=== PATIENT | female | born 1945 | race Caucasian/White ===

== ENCOUNTER → 2016-11-24 | Outpatient (CLI) | payer OTHER, MEDICARE ==
--- NOTE | 2016-11-25 13:03 | MAMMOGRAPHY REPORT ---
BILATERAL DIGITAL SCREENING MAMMOGRAM WITH CAD: 11/24/2016 CLINICAL HISTORY: Routine screening. Patient has no complaints. TECHNIQUE: Current study was also evaluated with a Computer Aided Detection (CAD) system. COMPARISON: Comparison is made to exams dated: 11/21/2015 mammogram, 11/20/2014 mammogram, 11/16/2013 mammogram, 11/08/2012 mammogram, 11/05/2011 mammogram, and 11/04/2010 mammogram - [facility] enter. BREAST COMPOSITION: The tissue of both breasts is heterogeneously dense, which may obscure small ma sses. FINDINGS: The parenchymal pattern is unchanged. No developing mass, architectural distortion or clu ster of suspicious microcalcifications is seen in either breast. IMPRESSION: ACR BI-RADS CATEGORY 2: BENIGN There is no mammographic evidence of malignancy. A 1 year screening mammogram is recommended. The p atient will receive written notification of the results. Approximately 10% of breast cancers are not detected with mammography. A negative mammographic repor t should not delay biopsy if a clinically suggestive mass is present. Sonali Merritt M.D. ay/:11/24/2016 15:23:39 Shredded Filler Cutter Operator: Archana Giraldo RT(R)(M)(BD), [facility] letter sent: Normal 1/2 BI-RADS Code: ACR BI-RADS Category 2: Benign
== END | disposition home or self-care (01) ==
LOC: C.MAMM 10:53
PROVIDERS: ATTEND Family Medicine
DX: Z12.31 Encounter for screening mammogram for malignant neoplasm of breast (principal)

== ENCOUNTER → 2017-11-16 | Outpatient (CLI) | payer OTHER, MEDICARE ==
--- NOTE | 2017-11-17 06:31 | PAP/PSG TECHNICIAN REPORT ---
[facility] Newspaper Copy Editor Polysomnogram Report Study name: None Report date: 11/17/2017 Study date: 11/16/2017 Referring Physician: Dr. Horne Name: STERLING PARK Interpreting Physician: Pratik Lora M.D. Date of : 1945 Newspaper Copy Editor: Dali Walter RPS. Sex: Female Age: 72 Study Type: PSG Weight: 174 lbs 15.5 in Height: 72 years, Height 5' 3.5" Neck Circum: BMI: 30.34 Medications: ATORVASTATIN 20 MG, LISINOPRIL 5 MG, GLUCOSAMINE CHONDROITIN, ASPIRIN 81 MG, VIT D3 2000 UNIT, FISH OIL 1000 MG, AREDS 2, CALCIUM+D 500-200 MG, COQ10 100 MG, MULTI VIT Patient History 72 yr-old female here for a baseline study. She has a history of frequent awakenings and daytime sleepiness. 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 Her [place] scale is 7. The test was started on room air. ETCO2 testing is included in this study. Room 3 Parameters Monitored NPSG: E1-M2, E2-M1, Fp1-M2, Fp2-M1, F3-M2, F4-M2, F4-M1, C3-M2, C4-M2, C4-M1, O1-M2, O2-M2, O2-M1, T3-M2, T4-M1, P3-M2, P4-M1, CHIN1, CHIN2, HR, EKG, Legs, PFLOW, SNOR, FLOW, CFLOW, Tidal Volume, THOR, ABDO, SpO2, PLTH, CPRESS, ETCO2 Wave, ETCO2, pH Sleep Architecture Sleep Stages Time at Lights Off 11:03:00 PM STAGES Time (min.) TST (%) Time at Lights On 5:33:30 AM Wake 154.5 -- Total Recording Time (TRT) 390.50 min. N1 20.0 8 Total Sleep Period (TSP) 284.0 min. N2 139.5 59 Total Sleep Time (TST) 236.0min. N3 29.0 12 Awake Time 154.5 min. REM 47.5 20 Wake after Sleep Onset 53.0 min. Sleep Efficiency (SE) 60 % Sleep Onset Latency (MICHAEL) 101.5 min. Number of Stage 1 Shifts None Awakenings 26 Stage Changes 91 Number of REM periods 3 REM 47.5 20 REM Latency 72.0 min. NREM 188.5 80 Body Position Analysis Supine Right Left Side Prone Vertical Total Sleep Time (min.) 30.7 126.9 94.5 221.37 0.0 0.0 Total Sleep Time (%) 6% 54% 40% 94 0% N/A% Total Sleep Time REM (min.) 0.0 11.5 36.0 None 0.0 0.0 Total Sleep Time NREM (min.) 14.6 115.4 58.5 None 0.0 0.0 Intermittent Wake (min.) 16.0 65.9 72.5 None 0.0 0.0 Total Sleep Period (%) 11% None None None None None Arousals Myoclonus (PLM) * Events Count Index Events Count Index Spontaneous 28 7 Events Awake (PLMW) 123 47.8 Respiratory 17 4.3 Events Asleep w/ Arousal (PLMA) 40 10.2 PLM 39 10 Events Asleep w/o Arousal (PLMS) 65 16.5 Snoring 11 3 Total Asleep 105 26.7 Total 95 24 Total 228 35 Respiratory Analysis * CA OA MA CH H RERA Total Count 0 23 0 0 38 6 61 Index 0.0 5.8 0.0 0 9.7 2 17.0 Mean Duration 0.0 17.3 0.0 0.00 24.2 18.8 21.4 Longest Duration 0.0 29.2 0.0 0.00 0.0 22.5 43.1 Respiratory Event Summary Total Supine ~Supine Right Left Prone REM NREM Apneas Count 23 0 23 21 2 N/A 16 7 Index 5.8 0 6 9.9 1.3 N/A 20 2 Hypopneas (4% Desat) Count 38 2 36 8 28 N/A 28 10 Index 9.7 8.2 10 3.8 17.8 N/A 35.4 3.2 Apneas & All Hypopneas Count 61 2 59 29 30 N/A 44 17 Index 15.5 8 16 14 19 N/A 55.6 5.4 Respiratory Events (Child Psychiatrist+All Hyp+RERA) Count 61 5 62 30 32 N/A 44 17 Index 17.0 21 17 14.2 20.3 N/A 55.6 7.3 Respiratory Related Arousal Count 17 5 13 7 6 N/A 7 10 Index 4.3 16 4 3 4 N/A 9 3 Snoring Analysis Supine Right Left Prone REM NREM Total Snore duration 38.0 min Snores count 34 1,223 461 N/A 267 1,451 1,718 Snore mean duration 1.3 Sec Snores index 139 578 293 N/A 337.3 461.9 436.8 TST with snoring (%) 16.1% SpO2 Analysis Total REM NREM Awake <50% 0.1 min. 0.0 min. 0.0 min. 0.1 min. 51 - 60% 0.0 min. 0.0 min. 0.0 min. 0.0 min. 61 - 70% 0.0 min. 0.0 min. 0.0 min. 0.0 min. 71 - 80% 0.1 min. 0.1 min. 0.0 min. 0.0 min. 81 - 90% 21.6 min. 7.6 min. 12.3 min. 1.8 min. 91 - 100% 356.2 min. 39.8 min. 176.2 min. 140.2 min. Average 93 93 93 94 Minimum SpO2 44 80 82 44 Desaturation Event Index 10.9 51.8 6.4 4.3 # Desat. Events below 89% 29 23 5 1 Time(%) with Saturation below 89% 1.6 1.1 0.3 0.1 Time(min.) with Saturation below 89% 6.0 4.3 1.1 0.6 Heart Rate Analysis End Tidal CO2 Analysis Min (bpm) Max (bpm) Average (bpm) TSP (mins) % of TSP Awake 51 81 63 Above 55 mmHg 0.0 0.0 NREM 50 80 60 50-55 mmHg 0.0 0.0 REM 54 79 63 45-50 mmHg 0.0 0.0 Overall 50 80 61 40-45 mmHg 66.6 28.2 35-40 mmHg 67.8 28.7 30-35 mmHg 43.5 18.4 Average ETCO2 0.1 Supplemental O2 Values Minimum O2 level: None Value Start Time End Time Newspaper Copy Editor Comments Ms. Park slept in the right, left, and supine positions. No cardiac arrhythmias were noted. PLMs and leg movements that caused arousals were noted. No bruxism noted. Snoring was noted and scored as a 2 on a scale of 1 through 5. (0=no snoring, 5=snoring loud enough to be heard through a closed door or down the [address] way). She awoke to use the restroom one time during the night. Ms. Park stated that she did not sleep as well as usual. The final report will be interpreted and signed by a sleep physician. The completed physician report will then be placed in the patient medical record. Therapy (cm H2O) 0 TIB (min.) 390.5 TST (min.) 236.0 Sleep Onset (min.) 101.5 REM Onset From Sleep (min.) 72.0 Sleep Efficiency % 60 Wakefulness (%) 40 Wakefulness (min.) 154.5 NREM 1 (%) 8 NREM 1 (min.) 20.0 NREM 2 (%) 59 NREM 2 (min.) 139.5 NREM 3 (%) 12 NREM 3 (min.) 29.0 REM (%) 20 REM (min.) 47.5 # Arousals 95 Arousal Index 24 # Snore 1,718 Snore Index 436.8 AHI 15.5 AHI Supine 8 AHI Non-Supine 16 NREM AHI 5.4 REM AHI 55.6 RDI 17.0 # Obstructive Apnea 23 # Central Apnea 0 # Mixed Apnea 0 # Hypopneas 38 RERAs 6 Total Respiratory Events 67 Time Below SpO2 89% (min.) 5.4 Mean NREM SpO2 (%) 93 Mean REM SpO2 (%) 93 Mean Sleep SpO2 (%) 93 Min NREM SpO2 (%) 82 Min REM SpO2 (%) 80 Position Supine (min.) 30.7 Position Non-supine (min.) 221.4 LM Index Sleep 26.7 LM Index NREM 32.5 LM Index REM 3.8 Mean Heart Rate (bpm) 61 Min Heart Rate (bpm) 50
--- NOTE | 2017-11-17 16:29 | POLYSOMNOGRAPH REPORT ---
CLINICAL DATA: A 72-year-old female referred by Dr. Horne for a sleep study. She has a BMI of 30.34. She has frequent awakenings and daytime sleepiness. She had a sleep study done by a dentist which showed CINTIA. SLEEP ARCHITECTURE: Total sleep period was 284 minutes. Total sleep time was 236 minutes divided between 188.5 minutes of non-REM sleep and 47.5 minutes of REM sleep. Sleep onset latency was delayed at 101.5 minutes. REM latency was 72 minutes. Sleep efficiency was 60%. Wake after sleep onset was 53 minutes. Sleep consisted of stage N1 8%, stage N2 59%, stage N3 12%, and REM 20%. AROUSAL DATA: Ninety five arousals were recorded for an index of 24 per hour. PERIODIC LIMB MOVEMENT DATA: Sieper and five limb movements during sleep were noted for an index of 26.7 per hour with arousal index of 10.2 per hour. RESPIRATORY DATA: Moderate sleep apnea was documented. The AHI was 15.5. The RDI was 17. There were 23 obstructive apneic episodes. The longest duration of apnea was 29.2 seconds. There were 38 hypopneic episodes with the mean duration of 24 seconds. There were 6 RERAs. The longest RERA was 23.5 seconds. OXIMETRY DATA: Nocturnal hypoxemia was seen. Oxygen fernanda was 80% during REM. The mean saturation was 93%. Time below 89% was 6 minutes. ECHOCARDIOGRAM: Heart rates ranged from 50 to 80 beats per minute. No arrhythmias were noted. DOUBLE END CHUCKING MACHINE OPERATOR'S COMMENTS: The patient slept in the right, left, and supine positions. PLMs caused arousal. Snoring was mild, rated 2 on a scale of 1-5. IMPRESSION: Moderate sleep apnea/hypopnea with an apnea/hypopnea index of 15.5 and a respiratory disturbance index of 17 with frequent limb movements during sleep. RECOMMENDATIONS: The patient may benefit from a repeat sleep study with CPAP, use of auto CPAP, or use of an oral appliance. DARIEN
== END | disposition home or self-care (01) ==
LOC: C.NEUR 21:00
PROVIDERS: ATTEND Internal Medicine
DX: G47.33 Obstructive sleep apnea (adult) (pediatric) (principal)

== ENCOUNTER → 2017-11-26 | Outpatient (CLI) | payer OTHER, MEDICARE ==
--- NOTE | 2017-11-27 14:43 | MAMMOGRAPHY REPORT ---
BILATERAL DIGITAL SCREENING MAMMOGRAM TOMOSYNTHESIS WITH CAD: 11/26/2017 CLINICAL HISTORY: Routine screening. Patient has no complaints. TECHNIQUE: Breast tomosynthesis in addition to standard 2D mammography was performed. Current study was also evaluated with a Computer Aided Detection (CAD) system. COMPARISON: Comparison is made to exams dated: 11/24/2016 mammogram, 11/21/2015 mammogram, 11/20/2014 m ammogram, 11/16/2013 mammogram, 11/08/2012 mammogram, and 11/05/2011 mammogram - [facility]. BREAST COMPOSITION: The tissue of both breasts is heterogeneously dense, which may obscure small mas ses. FINDINGS: The glandular pattern is similar to prior mammograms. A nodular asymmetry in the anterior slightly and her left breast on the MLO view appears stable dating back to at least 10/26/2008, there fore likely benign. No suspicious mass, architectural distortion or cluster of microcalcifications i s seen. IMPRESSION: ACR BI-RADS CATEGORY 1: NEGATIVE There is no mammographic evidence of malignancy. A 1 year screening mammogram is recommended. The pa tient will receive written notification of the results. Approximately 10% of breast cancers are not detected with mammography. A negative mammographic report should not delay biopsy if a clinically suggestive mass is present. Sonali Merritt M.D. ay/:11/26/2017 19:41:02 Director Of Publications: Damaris URIBE)(Nela), [facility] letter sent: Normal 1/2 BI-RADS Code: ACR BI-RADS Category 1: Negative
== END | disposition home or self-care (01) ==
LOC: C.MAMM 11:04
PROVIDERS: ATTEND Family Medicine
DX: Z12.31 Encounter for screening mammogram for malignant neoplasm of breast (principal)

== ENCOUNTER 2025-09-23 11:57 | Inpatient (IN) ==
[2025-09-23 12:32] LABS: Hematocrit (blood only) 39.5 % (37.0-47.0); Hemoglobin 13.0 g/dL (12.0-16.0); Immature Granulocytes # (auto) 0.10 K/uL (0.01-0.20); Immature Granulocytes % (auto) 0.7 %; Mean Corpuscular Hemoglobin 28.2 pg (25.0-34.0); Mean Corpuscular Volume 85.7 fL (80.0-100.0); Platelet Count 280 K/uL (130-400); RDW Standard Deviation 48.8 fL (36.4-46.3); Red Blood Count 4.61 M/uL (4.20-5.40); White Blood Count 14.41 K/ul (4.8-10.8)
[2025-09-23 13:09] LABS: INR 1.1 (0.9-1.1); Prothrombin Time 11.1 Seconds (9.0-12.0)
[2025-09-23 13:15] LABS: Alanine Aminotransferase 25.0 U/L (7-52); Albumin Globulin Ratio 0.9 (0.9-2); Albumin Level 3.8 gm/dl (3.4-5.0); Alkaline Phosphatase 76.0 U/L (34-104); Anion Gap 7.0 (3-11); Bilirubin,Total 2.1 mg/dl (0.2-1.0); Blood Urea Nitrogen 17.0 mg/dl (6-23); Calcium 9.9 mg/dl (8.6-10.3); Carbon Dioxide 29.0 mmol/L (21-32); Chloride 98.0 mmol/L (98-107); Creatinine Clr Calc Pharmacy 64.3 ml/min; Globulin 4.1 gm/dl (2.5-4.0); Glucose 111.0 mg/dl (70-99(Fasting)); Lipase 30.0 U/L (11-82); Magnesium 2.0 mg/dl (1.7-2.4); Potassium 3.9 mmol/L (3.5-5.1); Sodium 134.0 mmol/L (136-145); Total Protein 7.9 gm/dl (6.0-8.3)
[2025-09-23 13:30] LABS: Thyroid Stimulating Hormone 1.451 uIu/ml (0.300-4.500)
--- NOTE | 2025-09-23 14:25 | XRay Report ---
Clinical History: Weakness Technique: A frontal view of the chest was obtained Findings: There are no confluent pulmonary infiltrates. The heart size is within normal limits. No pleural effusion or pneumothorax is seen. There is no definite pulmonary nodule. No fracture is noted. 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
--- NOTE | 2025-09-23 14:33 | Emergency Department Note ---
History of Present Illness General Chief complaint: Weakness Stated complaint: WEAKNESS Time Seen by Provider: 09/23/25 12:28 History of Present Illness this 80-year-old female presents today by BLS ambulance, for evaluation of weakness after sliding to the floor. The patient states she was getting up off the couch and stepped on a towel that was on the floor. It caused her foot to slide out from underneath her and she slid to the floor onto her left side. She states she has osteoarthritis and known baseline weakness. She was unable to get herself up off the floor. She called for EMS assistance. Due to her weakness, she was brought to the ED for evaluation. She denies any acute injury at this time. She did not strike her head. She denies any loss of consciousness, nausea, vomiting, abdominal pain, chest pain, or increased extremity pain. She has baseline bilateral knee pain secondary to osteoarthritis. She states she also has loss of function of the right hand secondary to pain and swelling for the last 3 weeks. She states that it is significantly swollen, however it is better than it was on Thursday. Her PCP is aware of this and has scheduled an MRI for October 02. 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 She states she feels normal other than the weakness. She has not been using her usual meloxicam while using the prednisone. Female friend accompanies her today and also provides pertinent history. the friend states that a month ago, the patient was able to walk unassisted from her apartment, through the parking lot of a shopping center, and to her physician's office. She has declined to the point where she now requires a walker to get around her home. Home Medications Medication Instructions Recorded Confirmed Type aspirin 81 mg tablet,delayed 81 mg PO QAM 03/01/19 09/23/25 History release atorvastatin 20 mg tablet 20 mg PO PM 03/01/19 09/23/25 History calcium 500 mg (as 1 tab PO BID 03/01/19 09/23/25 History carbonate)-vitamin D3 5 mcg (200 unit) tablet (Calcium 500 + D) cholecalciferol (vitamin D3) 25 1,000 unit PO DAILY 03/01/19 09/23/25 History mcg (1,000 unit) capsule (Vitamin D3) coenzyme Q10 100 mg capsule 0 cap PO DAILY ##0 03/01/19 09/23/25 History glucosamine-chondroitin 500 mg-400 1 tab PO DAILY 03/01/19 09/23/25 History mg tablet (Cosamin DS) multivitamin 1 tab PO DAILY 03/01/19 09/23/25 History omega 4-wxq-qjt-fish oil 1,000 mg 1 cap PO DAILY 03/01/19 09/23/25 History (120 mg-180 mg) capsule (Fish Oil) vit C 250 mg-vit E 90 mg-zinc 40 1 tab PO DAILY 03/01/19 09/23/25 History mg-copper 1 [id number] capsule (PreserVision AREDS-2) benzonatate 100 mg capsule 100 mg PO BID PRN cough #30 caps 01/22/25 09/23/25 Rx lisinopril 5 mg tablet 2.5 mg PO PM 01/22/25 09/23/25 History meloxicam 15 mg tablet 15 mg PO DAILY PRN Pain 09/23/25 09/23/25 History Allergies Allergy/AdvReac Type Severity Reaction Status Date / Time latex Allergy Rash Verified 03/10/25 15:35 No Known Drug Allergies Allergy Verified 03/10/25 15:35 Penicillins Allergy Verified 03/10/25 15:35 Past Med/Surg History Problem List Osteoarthritis (Acute) Weakness (Acute) Pain and swelling of right wrist (Acute) Chondrocalcinosis Arthritis of knee, left Medical History Obesity (BMI 30.0-34.9) Plantar fasciitis of right foot Osteoarthritis History of anxiety Hypertension Hyperlipidemia Sleep apnea CPAP Surgical History History of cataract surgery History of tooth extraction History of tonsillectomy History of total abdominal hysterectomy and bilateral salpingo-oophorectomy History of colonoscopy W/ POLYPECTOMY Family History Brother Family history of diabetes mellitus Father Family history of diabetes mellitus Father Family hx of colon cancer Social History Smoking Status: Never smoker Second Hand Exposure: No; Do You Dip or Chew Tobacco: No; Hx Alcohol Use: No Hx Substance Use: No Preferred Language: Turkmen Communication Ability: Effective [employer] Tester Required: No Beliefs That Will Affect Care: None Current Living Situation: Alone Other Information That Helps Us Care for You: No Feels Safe at Home: Yes Assistive Devices: Glasses, Hearing Aid - Bilateral and Walker Assistive Devices Comment: hearing aids not available Review of Systems A total of 10 systems reviewed and were otherwise negative Physical Exam Vital Signs Vital Signs - 24 hr 09/23/25 13:00 09/23/25 14:00 09/23/25 15:00 Pulse Rate 73 77 76 Pulse Rate from SpO2 Sensor 73 76 79 Respiratory Rate 17 12 17 Blood Pressure 150/80 H 146/67 H 132/70 Blood Pressure Mean 103 93 107 Pulse Oximetry 99 99 95 General: Well-developed, well-nourished, elderly white female, in no acute distress. Laying in bed. Alert and oriented. Conversive. Skin: Warm and dry with good turgor. No rashes. No ecchymosis or erythema. No significant peripheral edema. She has a small healing cut on the very tip of her right thumb with a scab present. There is no erythema or edema in the hand. HEENT: Normocephalic atraumatic. Eyes PERRLA, EOMI. No conjunctiva or scleral injection. Ears TMs intact bilaterally with good light reflexes. No erythema or bulging. No hemotympanum. Canals are patent. Nares patent bilaterally without turbinate enlargement. No significant drainage. No epistaxis. Oropharynx without erythema or exudate. Uvula midline, oral mucosa moist. No lesions present. Heart: Heart RRR. No MGR. Peripheral pulses are 2+. Lungs: Lungs are clear to auscultation. No crackles rhonchi or wheezing. Good air movement. The patient is able to take a deep breath. Abdomen: Abdomen was inspected, auscultated, and palpated. Bowel sounds present x 4. Soft, nontender to palpation. No hepato-splenomegaly. No masses noted. No rebound. Musculoskeletal: The patient has no obvious deformity. She has intact motor function to her right hand digits. FDS and FDP functions are intact though she is unwilling to fully make a fist. Thumb circumduction is intact. She has full extension of each of the digits. There is intact wrist motion but she is unwilling to fully flex or extend. She has full range of motion of her right elbow and shoulder. When asked to sit up, she initially required significant assistance, however later in the visit she was able to sit up on her own. She has no discomfort with rotation of her hips. She complains of severe pain in both of her knees. She has full extension of both knees. Flexion to only 45 degrees with significant resistance from the patient. No appreciable effusion in either knee. Intact plantarflexion dorsiflexion of her ankles. Neurologic: Gross sensation is intact across the upper and lower extremities by soft touch. She has hyper sensitivity to the right thumb. Course Administered Medications Aspirin (Aspirin 81 Mg Ectab) 81 mg PO QAM MANJIT Stop: 10/24/25 08:59 Last Admin: 09/24/25 08:26 Dose: 81 mg Documented By: ANT Atorvastatin Calcium (Atorvastatin 20 Mg Tab) 20 mg PO PM MANJIT Stop: 10/23/25 20:59 Last Admin: 09/23/25 20:02 Dose: 20 mg Documented By: JIAN Calcium/Vitamin D (Calcium 600mg + Vit D 400 Iu Tab) 1 tab PO BID MANJIT Stop: 10/23/25 20:59 Last Admin: 09/24/25 08:26 Dose: 1 tab Documented By: Admin: 09/23/25 20:02 Dose: 1 tab Documented By: JIAN Dexamethasone (Dexamethasone 4 Mg Tab) 4 mg PO DAILY MANJIT Stop: 10/24/25 08:59 Last Admin: 09/24/25 08:26 Dose: 4 mg Documented By: ANT Ketorolac Tromethamine (Ketorolac Tromethamine 10 Mg Tablet) 10 mg PO TID MANJIT Stop: 09/28/25 20:59 Last Admin: 09/24/25 13:35 Dose: 10 mg Documented By: Admin: 09/24/25 08:25 Dose: 10 mg Documented By: Admin: 09/23/25 20:01 Dose: 10 mg Documented By: JIAN Lisinopril (Lisinopril 2.5 Mg Tab) 2.5 mg PO PM MANJIT Stop: 10/23/25 20:59 Last Admin: 09/23/25 20:02 Dose: 2.5 mg Documented By: JIAN Multivitamins (Multivitamin Tab) 1 tab PO DAILY MANJIT Stop: 10/24/25 08:59 Last Admin: 09/24/25 08:26 Dose: 1 tab Documented By: ANT Vitamin D (Cholecalciferol 25 Mcg (1000 Units) Tab) 25 mcg PO DAILY MANJIT Stop: 10/24/25 08:59 Last Admin: 09/24/25 08:26 Dose: 25 mcg Documented By: [facility] Discontinued Medications Dexamethasone (Dexamethasone 4 Mg Tab) 4 mg PO ONE ONE Stop: 09/23/25 16:31 Last Admin: 09/23/25 18:22 Dose: 4 mg Documented By: CS Medical Decision Making Differential Diagnosis PMR, Lyme disease, sepsis, myositis, osteoarthritis, rheumatoid arthritis, ankylosis, Gout Medical Records Attestation: I reviewed the patient's medical records. Home Medications Current Medication List: was personally reviewed by me Laboratory Data CBC obtained today shows an elevation of white count at 14.4. Normal H&H. Normal platelets. Differential shows an elevated neutrophil count. Chemistry panel obtained today shows normal electrolytes. Normal BUN and creatinine. Glucose is 111. LFTs are unremarkable. Magnesium is normal at 2.0. She has a significant elevated CRP and sed rate at 20 and 103. Uric acid is normal at 4.2. Troponin is normal at 10. TSH is also normal at 1.4. 09/24/25 09:28 09/24/25 09:28 Lab Results 09/23/25 Range/Units 12:06 WBC 14.41 H (4.8-10.8) K/ul RBC 4.61 (4.20-5.40) M/uL Hgb 13.0 (12.0-16.0) g/dL Hct 39.5 (37.0-47.0) % MCV 85.7 (80.0-100.0) fL MCH 28.2 (25.0-34.0) pg MCHC 32.9 (32.0-36.0) g/dL RDW Std Deviation 48.8 H (36.4-46.3) fL RDW Coeff of Kannan 15.8 H (11.5-14.5) % Plt Count 280 (130-400) K/uL MPV 9.6 (9.4-12.4) fL Immature Gran % (Auto) 0.7 % Neut % (Auto) 82.7 % Lymph % (Auto) 7.3 % Canyon % (Auto) 9.0 % Eos % (Auto) 0.2 % Baso % (Auto) 0.1 % Reticulocyte % (Auto) 1.09 (0.50-2.00) % Neut # (Auto) 11.92 H (1.40-6.50) K/uL Lymph # (Auto) 1.05 L (1.20-3.40) K/uL Canyon # (Auto) 1.29 H (0.11-0.59) K/uL Eos # (Auto) 0.03 (0.00-0.50) K/uL Baso # (Auto) 0.02 (0.00-0.20) K/uL Reticulocyte # 0.050 (0.020-0.100) 10^6/uL Immature Gran # (Auto) 0.10 (0.01-0.20) K/uL ESR 103 H (0-30) mm/hr PT 11.1 (9.0-12.0) Seconds INR 1.1 (0.9-1.1) Sodium 134 L (136-145) mmol/L Potassium 3.9 (3.5-5.1) mmol/L Chloride 98 (98-107) mmol/L Carbon Dioxide 29 (21-32) mmol/L Anion Gap 7 (3-11) BUN 17 (6-23) mg/dl Creatinine 0.71 (0.6-1.2) mg/dl Est Cr Clr Drug Dosing 64.3 ml/min eGFR 86.98 BUN/Creatinine Ratio 23.9 H (10-20) Glucose 111 H (70-99(Fasting)) mg/dl Uric Acid 4.2 (2.6-7.2) mg/dl Calcium 9.9 (8.6-10.3) mg/dl Phosphorus 2.8 (2.5-4.9) mg/dl Magnesium 2.0 (1.7-2.4) mg/dl Total Bilirubin 2.1 H (0.2-1.0) mg/dl Direct Bilirubin 0.3 H (0-0.2) mg/dl AST 25 (13-39) U/L ALT 25 (7-52) U/L Alkaline Phosphatase 76 (34-104) U/L Lactate Dehydrogenase 199 (86-244) U/L Total Creatine Kinase 88 (26-192) U/L Troponin I High Sens 10.0 (0-14) pg/ml C-Reactive Protein 20.38 H (0-0.5) mg/dl Total Protein 7.9 (6.0-8.3) gm/dl Albumin 3.8 (3.4-5.0) gm/dl Globulin 4.1 H (2.5-4.0) gm/dl Albumin/Globulin Ratio 0.9 (0.9-2) Lipase 30 (11-82) U/L TSH 1.451 (0.300-4.500) uIu/ml Imaging Data My Impression: Chest x-ray obtained today is is interpreted by me and read by radiology. Films are unremarkable. No infiltrates. No effusion or pneumothorax. Radiologist's Impression: Chest X-Ray 09/23/25 12:09 Clinical History: Weakness Technique: A frontal view of the chest was obtained Findings: There are no confluent pulmonary infiltrates. The heart size is within normal limits. No pleural effusion or pneumothorax is seen. There is no definite pulmonary nodule. No fracture is noted. 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 No acute ST or T wave changes. This was reviewed with Dr. Packer. Blood Pressure Blood Pressure Findings: Normal blood pressure MDM Narrative the patient was evaluated in room B10. Conservative care measures were discussed. IV was established. Labs were obtained. Her inflammatory markers are considerably elevated. White count is mildly elevated. This may be due to her recent steroid use. I obtained the lab records from [facility] on September 11. Her white count as well as her CRP and ESR are all elevated compared to that time. Troponin and TSH are unremarkable. Chest x-ray obtained today was also unremarkable. The patient was placed on a cardiac catheterization technician and remained in a normal sinus rhythm with a rate in the 80s. EKG obtained today was also unremarkable. Given her weakness, elevated inflammatory markers, and duration of symptoms, I recommended admission for further workup and likely placement at a rehab facility for strengthening. The patient is in agreement. The [facility] hospitalist team was consulted for admission. Please see that dictation for final management. The patient remained stable while in the ED. Impression & Plan Pain and swelling of right wrist, Weakness, Osteoarthritis Admission for further workup. Care plan was discussed with Dr. Packer. Discharge Plan Visit Data Chief Complaint: Weakness Stated Complaint: WEAKNESS ED Provider: Domingo Packer ED Midlevel Provider: Spencer Austin Discharge Problem: Pain and swelling of right wrist, Weakness, Osteoarthritis Patient Disposition: Admitted As Inpatient Condition: Fair Discharge Instructions Interventions: ED Discharge Assessment Last Done: 09/23/25 17:40 ED DC CONDITION Conditon at Discharge Condition at Discharge: Good Addendum September 24, 2025 17:06 I was consulted by the Advanced Practice Provider and was substantively involved in the patient's visit.This includes aspects of the HPI, MDM, diagnostic interpretations, and disposition/plan. I discussed the case with the JEOVANY and agree with the findings and plan as documented in JEOVANY Norman's note. Discharge Problem: Osteoarthritis Qualifiers: Osteoarthritis location: multiple joints Osteoarthritis type: primary Qualified Code(s): M15.0 - Primary generalized (osteo)arthritis
--- NOTE | 2025-09-23 16:21 | History & Physical Report ---
Date of Service September 23, 2025 Assessment & Plan (1) Pain and swelling of right wrist: (2) Weakness: (3) Hypertension: (4) Hyperlipidemia: (5) Osteoarthritis: Plan This is a 80 y/o with HTN, hyperlipidemia, osteoarthritis, and other history as outlined below who presented to the ED with right thumb and wrist pain and swelling as well as progressive generalized weakness over the last four weeks. Work-up in the ED was significant for elevated WBCs at 14.41, elevated sed rate at 103, elevated CRP at 20.38. Her total bilirubin was elevated at 2.1 with a direct bilirubin of 0.3. Due to the weakness and inability to get up off the floor this AM as well as noted lab abnormalities, she was referred for admission. #Right wrist/thumb pain and swelling #Migratory joint pains #Generalized weakness Initially thought by PCP to have polymyalgia rheumatica, so she was given a ten day tapering course of prednisone, with which she noted partial improvement and subsequent worsening after finishing the course. 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 Differential for migratory polyarthritis is broad and includes diagnoses such as gout, pseudogout, lupus, and RA. Also noted to have a new leukocytosis, which may be related to recent steroids, infection seems clinically less likely. - Admit to med surg - Lab work-up including CHINO, RF, uric acid, anti-CCP, anti-dsDNA, CK, C3, C4, ANCA, and UA for proteinuria - Ordered advanced imaging of right wrist due to ongoing symptoms - MRI wrist w/ and w/out contrast - Consult orthopedics to consider right wrist arthrocentesis for fluid studies - Trial of scheduled Toradol and dexamethasone for anti-inflammatory effects - PT/OT evaluations - Trend inflammatory markers #Indirect hyperbilirubinemia - Trend LFTs - RUQ Ultrasound for further evaluation - Labs to eval for hemolysis including LDH, haptoglobin, and retic count #Hypertension - Chronic, stable - continue lisinopril Pt seen and reviewed with collaborating physician, Dr. Lopez. Plan of care discussed and as outlined above. Code status: full code DVT prophylaxis: Alon Houston PA-C History of Present Illness Chief Complaint: weakness Primary Care Provider: Trini Rosario, DO This is a 80 y/o with HTN, hyperlipidemia, osteoarthritis, and other history as outlined below who presented to the ED with progressive weakness over the last four weeks. Pt reports that the weekend before , she woke up with swelling and discomfort in her right thumb and wrist. She initially attributed this to overuse as she had been cleaning the day before. However, she also had a cut on the tip of the right thumb from the edge of a metal can so she became concerned about infection. She saw her PCP who did a work-up including labs and an x-ray and told the patient that she may have PMR so she ordered a ten day prednisone taper. There was also some question of infection so she was given ten days of cephalexin. She reported some improvement in the swelling with the steroids but after she finished the steroids four days ago, she noted an increase in the pain and swelling the next day. She has also noted issues with pain and stiffness in other joints previously, specifically knees and ankle. She has been given meloxicam prn in the past for the knee pain and has seen orthopedics. She reports she has not been using the right wrist/hand over the last few weeks due to her symptoms which has made completing her ADLs increasingly more difficult. She feels like she has become progressively weak due to decreasing ambulation but denies weakness in specific muscles. This morning, as she was getting ready, she slipped on a towel and slid to the floor. She was unable to get up off the floor so she called EMS and was brought to the ED. She denies chest pain, palpitations, dyspnea, N/V, fevers, chills, visual changes, hearing loss, significant neck pain or stiffness. Her baseline is ambulatory and able to complete ADLs without significant difficulty. Lives alone, no pets. Allergies Allergy/AdvReac Type Severity Reaction Status Date / Time latex Allergy Rash Verified 03/10/25 15:35 No Known Drug Allergies Allergy Verified 03/10/25 15:35 Penicillins Allergy Verified 03/10/25 15:35 Home Medications Medication Instructions Recorded Confirmed Type aspirin 81 mg tablet,delayed 81 mg PO QAM 03/01/19 09/23/25 History release atorvastatin 20 mg tablet 20 mg PO PM 03/01/19 09/23/25 History calcium 500 mg (as 1 tab PO BID 03/01/19 09/23/25 History carbonate)-vitamin D3 5 mcg (200 unit) tablet (Calcium 500 + D) cholecalciferol (vitamin D3) 25 1,000 unit PO DAILY 03/01/19 09/23/25 History mcg (1,000 unit) capsule (Vitamin D3) coenzyme Q10 100 mg capsule 0 cap PO DAILY ##0 03/01/19 09/23/25 History glucosamine-chondroitin 500 mg-400 1 tab PO DAILY 03/01/19 09/23/25 History mg tablet (Cosamin DS) multivitamin 1 tab PO DAILY 03/01/19 09/23/25 History omega 5-jfc-snf-fish oil 1,000 mg 1 cap PO DAILY 03/01/19 09/23/25 History (120 mg-180 mg) capsule (Fish Oil) vit C 250 mg-vit E 90 mg-zinc 40 1 tab PO DAILY 03/01/19 09/23/25 History mg-copper 1 lc-nccxeg-jjjklv capsule (PreserVision AREDS-2) benzonatate 100 mg capsule 100 mg PO BID PRN cough #30 caps 01/22/25 09/23/25 Rx lisinopril 5 mg tablet 2.5 mg PO PM 01/22/25 09/23/25 History meloxicam 15 mg tablet 15 mg PO DAILY PRN Pain 09/23/25 09/23/25 History Past Med/Surg History Problem List (Updated 09/23/25 @ 19:06 by Madison Houston PA-C) Weakness Pain and swelling of right wrist Chondrocalcinosis Arthritis of knee, left Medical History (Updated 09/23/25 @ 19:06 by Madison Houston PA-C) Obesity (BMI 30.0-34.9) Plantar fasciitis of right foot Osteoarthritis History of anxiety Hypertension Hyperlipidemia Sleep apnea CPAP Surgical History History of cataract surgery History of tooth extraction History of tonsillectomy History of total abdominal hysterectomy and bilateral salpingo-oophorectomy History of colonoscopy W/ POLYPECTOMY Family History Brother Family history of diabetes mellitus Father Family history of diabetes mellitus Father Family hx of colon cancer Social History Smoking Status: Never smoker Second Hand Exposure: No; Do You Dip or Chew Tobacco: No; Hx Alcohol Use: No Hx Substance Use: No Preferred Language: [place]an Communication Ability: Effective Linen Manager Required: No Beliefs That Will Affect Care: None Current Living Situation: Alone Other Information That Helps Us Care for You: No Feels Safe at Home: Yes Assistive Devices: Glasses, Hearing Aid - Bilateral and Walker Assistive Devices Comment: hearing aids not available Review of Systems Review of Systems: All systems reviewed & are unremarkable except as noted in Subjective Physical Exam Physical Exam: General: awake, alert, NAD HEENT: no scleral icterus, moist oral mucosa Neck: supple, trachea midline Heart: RRR, no M/G/R Lungs: CTA bilaterally on the anterior Abdomen: soft, NT, +BS Skin: warm, dry, no jaundice Neurologic: Ox3, no confusion or dysarthria For rest of PE, see physician's addendum Results & Data Results & Data Vital Signs (Past 12 Hours) Vital Signs Temp Pulse Resp BP Pulse Ox O2 Del Method 09/23/25 15:00 76 17 132/70 95 09/23/25 14:00 77 12 146/67 H 99 09/23/25 13:00 73 17 150/80 H 99 09/23/25 12:32 77 09/23/25 12:09 82 14 98 Room Air 09/23/25 11:57 37.3 C 82 14 164/89 H 98 Room Air Laboratory Results Laboratory Results - last 24 hr 09/23/25 12:06 WBC 14.41 H RBC 4.61 Hgb 13.0 Hct 39.5 MCV 85.7 MCH 28.2 MCHC 32.9 RDW Std Deviation 48.8 H RDW Coeff of [place] 15.8 H Plt Count 280 MPV 9.6 Immature Gran % (Auto) 0.7 Neut % (Auto) 82.7 Lymph % (Auto) 7.3 [place] % (Auto) 9.0 Eos % (Auto) 0.2 Baso % (Auto) 0.1 Neut # (Auto) 11.92 H Lymph # (Auto) 1.05 L [place] # (Auto) 1.29 H Eos # (Auto) 0.03 Baso # (Auto) 0.02 Immature Gran # (Auto) 0.10 ESR 103 H PT 11.1 INR 1.1 Sodium 134 L Potassium 3.9 Chloride 98 Carbon Dioxide 29 Anion Gap 7 BUN 17 Creatinine 0.71 Est Cr Clr Drug Dosing 64.3 eGFR 86.98 BUN/Creatinine Ratio 23.9 H Glucose 111 H Calcium 9.9 Phosphorus 2.8 Magnesium 2.0 Total Bilirubin 2.1 H Direct Bilirubin 0.3 H AST 25 ALT 25 Alkaline Phosphatase 76 Troponin I High Sens 10.0 C-Reactive Protein 20.38 H Total Protein 7.9 Albumin 3.8 Globulin 4.1 H Albumin/Globulin Ratio 0.9 Lipase 30 TSH 1.451 Diagnostic Findings Chest X-Ray 09/23/25 12:09 Clinical History: Weakness Technique: A frontal view of the chest was obtained Findings: There are no confluent pulmonary infiltrates. The heart size is within normal limits. No pleural effusion or pneumothorax is seen. There is no definite pulmonary nodule. No fracture is noted. There is thoracic degenerative disc disease Impression: No active disease Electronically signed by Audi Freedman 09-23-2025 2:24 PM Supervising Physician Co-Signing Physician Notes Patient seen and examined at bedside. Friend present as well. Has had right wrist and knee pain for past month, getting worse. Had similar thing in ankle years ago. Feels weaker on right side due to joint pains. On exam, minimal movement without severe pain in right wrist and first 3 digits of right hand, severe tenderness to palpation on right knee, some bright red spotting on bilateral LE up to hip bilaterally. Leukocytosis noted could be reactive to steroids, elevated ESR/CRP suggestive of inflammatory process, indirect bilirubinemia noted. 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 Differential is broad, including pseudogout, gout, reactive arthritis, rheumatoid arthritis, psoriatric arthritis, other autoimmune conditions such as lupus or Sjogrens, less likely septic arthritis, lyme disease, freactures, metastatic disease. Given joint distribution less likely to be MSK process likely polymyalgia rheumatica, although remains lower on differential. -check metabolic workup including: uric acid, antiCCP, complement panel, ANCA, CHINO panel with reflex titers, CK, rheumatoid factor -get xray of right knee, MR of right wrist (given duration of symptoms) -ortho consult for arthrocentesis, appreciate recs -start scheduled toradol and decadron to reduce inflammation -PT/OT given severe weakness I have seen and discussed the case with the collaborating advanced practitioner. I agree with the above H&P. I have reviewed and confirmed the patients medical history, the findings on physical examination, and the patients diagnosis and treatment plan with Madison Houston PA-C and agree with the information documented. I spent a total of 40 minutes coordinating, documenting, and providing care for this patient excluding time spent in the performance of separately billed services. All of the aforementioned completed outside of collaborating with the assigned advanced practitioner for a full treatment plan. I have reviewed the advanced practitioner's documentation, and I agree with, and take responsibility for the plan of care
[2025-09-23] MEDS ORDERED: ACETAMINOPHEN 325 MG TAB PO PRN (17:43)
[2025-09-23 18:16] LABS: Creatine Kinase 88.0 U/L (26-192); Uric Acid 4.2 mg/dl (2.6-7.2)
[2025-09-23 18:31] LABS: Reticulocytes # 0.050 10^6/uL (0.020-0.100)
--- NOTE | 2025-09-23 19:54 | XRay Report ---
Exam: 2 views of the knee. Exam reason: Intermittent pain. Comparison: 01/30/2021. Technique: AP and lateral views of the knee were obtained. Findings: There is no evidence of acute fracture or dislocation. No unusual soft tissue calcifications are noted and no radiopaque foreign bodies are seen. There is no significant joint effusion. There is joint space loss and marginal osteophyte formation noted throughout the knee. There is meniscal chondrocalcinosis. There are multiple well-corticated calcifications noted in the anterior compartment of the knee measuring up to approximately 11 mm in size. Impression: 1. Moderate degenerative osteoarthritis. 2. Meniscal chondrocalcinosis. 3. Calcified loose bodies noted in the anterior compartment of the knee joint. Electronically signed by Maurisio Mckeon 09-23-2025 7:54 PM
[2025-09-23] MEDS: KETOROLAC TROMETHAMINE 10 MG TABLET PO SCH (20:01)
[2025-09-23] MEDS: CALCIUM 600MG + VIT D 400 IU TAB PO SCH (20:02)
[2025-09-23] MEDS: ATORVASTATIN 20 MG TAB PO SCH (20:02)
[2025-09-23 20:23] LABS: Appearance Urine Cloudy (Clear); Bacteria Urine Automated None Seen (None Seen); Cast Urine Automated 0-2 /lpf (0-2); Epithelial Cell Urine Auto 0-2 /hpf (0-2); Glucose Urine UA Negative (Negative); WBC Urine Automated 0-5 /hpf (0-5)
--- NOTE | 2025-09-24 04:12 | Ultrasound Report ---
EXAM: US liver CLINICAL HISTORY: elevated bilirubin TECHNIQUE: Real-time grayscale and Doppler ultrasound imaging of the abdomen was performed. COMPARISON: No prior studies available for comparison. FINDINGS: Liver: Liver is normal in size and echotexture, measuring 14.0 cm. Few small simple hepatic cysts are noted, including a right lobe cyst measuring 1.4 × 1.2 × 1.2 cm and a left lobe cyst measuring 0.7 × 0.6 × 0.8 cm. Mild prominence of intrahepatic bile ducts is seen in the region of the sandie hepatis. Main portal vein demonstrates normal hepatopetal flow. Gallbladder and Biliary System: Gallbladder appears mildly contracted on the visualized images. A gallbladder calculus is identified measuring 2.0 × 1.0 × 1.7 cm. Gallbladder wall thickness measures 0.28 cm. The common bile duct is of normal caliber for age, measuring 7.21 mm. Pancreas: The pancreas demonstrates normal size and homogeneous echotexture. No focal lesions or masses are identified. Pancreatic duct is normal in caliber with no dilatation. Spleen: The spleen is normal in size, measuring 8.19 × 4.20 × 8.22 cm. A complex cystic lesion with multiple internal septations is noted, measuring 2.6 × 3.4 × 3.6 cm. Kidneys: Right kidney measures 11.6 cm; left kidney measures 11.02 cm. Both kidneys are normal in size, shape, and echotexture. No renal calculi or focal masses are identified. Renal parenchymal echogenicity and cortical thickness are normal. Mild prominence/fullness of the renal pelvis is noted bilaterally. Aorta: Visualized abdominal aorta appears normal. Inferior Vena Cava (IVC): Visualized IVC appears normal. Urinary Bladder: Partially filled urinary bladder at the time of examination with a volume of approximately 70 mL. The patient was unable to void during the scan. Other Findings: No free intraperitoneal fluid is identified. IMPRESSION: 1. Cholelithiasis with a single gallbladder calculus; no sonographic features of acute cholecystitis. 2. Mild prominence of intrahepatic bile ducts, with normal-caliber common bile duct. Need clinical and lab correlation. 3. Small simple hepatic cysts. 4. Complex septated splenic cyst. 5. Mild bilateral renal pelvic fullness, non-specific. Electronically signed by Clarence Graham 09-24-2025 04:11 AM
--- NOTE | 2025-09-24 08:25 | Hospitalist Progress Note ---
Date of Service September 24, 2025 Assessment & Plan (1) Pain and swelling of right wrist: (2) Weakness: (3) Hypertension: (4) Hyperlipidemia: (5) Osteoarthritis: Plan This is a 80 y/o with HTN, hyperlipidemia, osteoarthritis, and other history as outlined below who presented to the ED with right thumb and wrist pain and swelling as well as progressive generalized weakness over the last four weeks. Work-up in the ED was significant for elevated WBCs at 14.41, elevated sed rate at 103, elevated CRP at 20.38. Her total bilirubin was elevated at 2.1 with a direct bilirubin of 0.3. Due to the weakness and inability to get up off the floor this AM as well as noted lab abnormalities, she was referred for admission. #Right wrist/thumb pain and swelling #Migratory joint pains #Generalized weakness Initially thought by PCP to have polymyalgia rheumatica, so she was given a ten day tapering course of prednisone, with which she noted partial improvement and subsequent worsening after finishing the course. 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 Differential for migratory polyarthritis is broad and includes diagnoses such as OA, gout, pseudogout, lupus, and RA. Also noted to have a new leukocytosis, which may be related to recent steroids, infection seems clinically less likely. - Admitted to med surg - Lab work-up : uric acid and CK WNL, trace protein in urine. CHINO, RF, anti- CCP, anti-dsDNA, C3, C4, ANCA still pending - Ordered advanced imaging of right wrist due to ongoing symptoms - MRI wrist w/ and w/out contrast - Ortho consulted - awaiting MRI results - Trial of scheduled Toradol and dexamethasone for anti-inflammatory effects - pain improving - PT/OT evaluations - Trend inflammatory markers #Indirect hyperbilirubinemia - Trend LFTs - RUQ Ultrasound with cholelithiasis, mild prominence of intrahepatic bile ducts, with normal-caliber common bile duct - No N/V or abd pain - LDH WNL, retic count WNL, haptoglobin pending #Hypertension - Chronic, stable - continue lisinopril DVT Ppx: SQ lovenos Code status: FULL Dispo: Admitted to med/surg Patient seen in collaboration with Dr. Hayes. I spent a total of 45 minutes coordinating, documenting, and providing care for this patient excluding time spent in the performance of separately billed services or time spent by another provider/QHP. Admission and Anticipated Discharge Date Admission Date: September 23, 2025 Supervising Physician Co-Signing Physician Notes 09/24/2025 The patient was seen and examined in medical floor in presence of the family members She has significant osteoarthritis involving multiple joints She is sleeping on her rock and suffered a fall at home Has been complaining of more swelling and pain involving the right wrist than any other joints On examination Complains weakness and pain involving the right wrist mainly Remains hemodynamically stable Noted to be tachycardic around 49 Chest was clear to auscultate bilaterally HeartS1-S2, regular Abdomenbenign Extremities no edema Musculoskeletal system did show acute arthritis involving right breast and arthritic changes involving the knees but no other acute acute arthritis involving any of the joint Her labs, imaging studies, medications reviewed Has acute arthritis involving the right wrist and MRI is showing possible cellulitis but no bony erosions Will start intravenous cefazolin She has significant osteoarthritis and will need to have PT OT evaluation I agree with assessment plan as outlined above by Shiloh Jensen PA-C and take the full responsibility of care in the hospital I spent a total of 20 minutes in examining the patient, explaining results of investigation and planning of care DR Nela Hayes Subjective Seen and examined in 353-2. R hand pain and swelling slightly improved since admission. Motion still reduced but better than yesterday. Remains generally weak, lives alone at home. No F/C, CP, SOB, N/V, abd pain. Review of Systems Review of Systems: At least ten systems reviewed and negative except as noted in the HPI. Physical Exam Physical Exam: Gen: WD/WN, NAD, resting in bed, A&Ox3, anxious HEENT: Normocephalic, atraumatic Lung: Clear to Auscultation bilaterally Heart: Regular rate, regular rhythm Abdomen: Soft, NT, ND +BS x 4 Extremities: + R hand edema, reduced ROM Skin: Warm, no rash Results & Data Results & Data Vital Signs (Past 12 Hours) Vital Signs Temp Pulse Resp BP Pulse Ox O2 Del Method 09/24/25 08:17 37.0 C 64 16 115/67 97 Room Air Laboratory Results Short CBC 09/24/25 Range/Units 09:28 WBC 7.30 (4.8-10.8) K/ul Hgb 11.7 L (12.0-16.0) g/dL Hct 34.3 L (37.0-47.0) % Plt Count 258 (130-400) K/uL BMP 09/24/25 09:28 Sodium 133 L Potassium 4.0 Chloride 101 Carbon Dioxide 26 BUN 23 Creatinine 0.57 L Glucose 253 H Calcium 9.5 Cardiac Enzymes 09/23/25 Range/Units 12:06 Total Creatine Kinase 88 (26-192) U/L Urine 09/23/25 Range/Units 20:10 Urine Color Yellow Urine Appearance Cloudy A (Clear) Urine pH 7.0 (4.5-7.5) Ur Specific [place] 1.020 (1.000-1.030) Urine Protein Trace H (Negative) Urine Glucose (UA) Negative (Negative) Diagnostic Findings Chest X-Ray 09/23/25 12:09 Clinical History: Weakness Technique: A frontal view of the chest was obtained Findings: There are no confluent pulmonary infiltrates. The heart size is within normal limits. No pleural effusion or pneumothorax is seen. There is no definite pulmonary nodule. No fracture is noted. There is thoracic degenerative disc disease Impression: No active disease Electronically signed by Audi Freedman 09-23-2025 2:24 PM Knee X-Ray 09/23/25 16:13 Exam: 2 views of the knee. Exam reason: Intermittent pain. Comparison: 01/30/2021. Technique: AP and lateral views of the knee were obtained. Findings: There is no evidence of acute fracture or dislocation. No unusual soft tissue calcifications are noted and no radiopaque foreign bodies are seen. There is no significant joint effusion. There is joint space loss and marginal osteophyte formation noted throughout the knee. There is meniscal chondrocalcinosis. There are multiple well-corticated calcifications noted in the anterior compartment of the knee measuring up to approximately 11 mm in size. Impression: 1. Moderate degenerative osteoarthritis. 2. Meniscal chondrocalcinosis. 3. Calcified loose bodies noted in the anterior compartment of the knee joint. Electronically signed by Maurisio Mckeon 09-23-2025 7:54 PM Liver Ultrasound 09/24/25 00:00 EXAM: US liver CLINICAL HISTORY: elevated bilirubin TECHNIQUE: Real-time grayscale and Doppler ultrasound imaging of the abdomen was performed. COMPARISON: No prior studies available for comparison. FINDINGS: Liver: Liver is normal in size and echotexture, measuring 14.0 cm. Few small simple hepatic cysts are noted, including a right lobe cyst measuring 1.4 × 1.2 × 1.2 cm and a left lobe cyst measuring 0.7 × 0.6 × 0.8 cm. Mild prominence of intrahepatic bile ducts is seen in the region of the sandie hepatis. Main portal vein demonstrates normal hepatopetal flow. Gallbladder and Biliary System: Gallbladder appears mildly contracted on the visualized images. A gallbladder calculus is identified measuring 2.0 × 1.0 × 1.7 cm. Gallbladder wall thickness measures 0.28 cm. The common bile duct is of normal caliber for age, measuring 7.21 mm. Pancreas: The pancreas demonstrates normal size and homogeneous echotexture. No focal lesions or masses are identified. Pancreatic duct is normal in caliber with no dilatation. Spleen: The spleen is normal in size, measuring 8.19 × 4.20 × 8.22 cm. A complex cystic lesion with multiple internal septations is noted, measuring 2.6 × 3.4 × 3.6 cm. Kidneys: Right kidney measures 11.6 cm; left kidney measures 11.02 cm. Both kidneys are normal in size, shape, and echotexture. No renal calculi or focal masses are identified. Renal parenchymal echogenicity and cortical thickness are normal. Mild prominence/fullness of the renal pelvis is noted bilaterally. Aorta: Visualized abdominal aorta appears normal. Inferior Vena Cava (IVC): Visualized IVC appears normal. Urinary Bladder: Partially filled urinary bladder at the time of examination with a volume of approximately 70 mL. The patient was unable to void during the scan. Other Findings: No free intraperitoneal fluid is identified. IMPRESSION: 1. Cholelithiasis with a single gallbladder calculus; no sonographic features of acute cholecystitis. 2. Mild prominence of intrahepatic bile ducts, with normal-caliber common bile duct. Need clinical and lab correlation. 3. Small simple hepatic cysts. 4. Complex septated splenic cyst. 5. Mild bilateral renal pelvic fullness, non-specific. Electronically signed by Clarence Graham 09-24-2025 04:11 AM
[2025-09-24] MEDS: MULTIVITAMIN TAB PO SCH (08:26)
[2025-09-24] MEDS: CHOLECALCIFEROL 25 MCG (1000 UNITS) TAB PO SCH (08:26)
[2025-09-24] MEDS: ASPIRIN 81 MG ECTAB PO SCH (08:26)
--- NOTE | 2025-09-24 09:38 | Electrocardiogram Report ---
Test Reason : Blood Pressure : */* mmHG Vent. Rate : 84 BPM Atrial Rate : 84 BPM P-R Int : 128 ms QRS Dur : 82 ms QT Int : 362 ms P-R-T Axes : 34 -46 -15 degrees QTcB Int : 427 ms Normal sinus rhythm Left anterior fascicular block Cannot rule out Anterior infarct , age undetermined Abnormal ECG Confirmed by Elpidio Ryan ([id number]) on 09/24/2025 9:38:32 AM Referred By: REFERRED SELF Confirmed By: Elpidio Ryan
[2025-09-24 09:51] LABS: Hematocrit (blood only) 34.3 % (37.0-47.0); Hemoglobin 11.7 g/dL (12.0-16.0); Immature Granulocytes # (auto) 0.02 K/uL (0.01-0.20); Immature Granulocytes % (auto) 0.3 %; Mean Corpuscular Hemoglobin 29.0 pg (25.0-34.0); Mean Corpuscular Volume 85.1 fL (80.0-100.0); Platelet Count 258 K/uL (130-400); RDW Standard Deviation 47.9 fL (36.4-46.3); Red Blood Count 4.03 M/uL (4.20-5.40); White Blood Count 7.30 K/ul (4.8-10.8)
[2025-09-24 10:06] LABS: Anion Gap 6.0 (3-11); Blood Urea Nitrogen 23.0 mg/dl (6-23); Calcium 9.5 mg/dl (8.6-10.3); Carbon Dioxide 26.0 mmol/L (21-32); Chloride 101.0 mmol/L (98-107); Creatinine Clr Calc Pharmacy 80.1 ml/min; Glucose 253.0 mg/dl (70-99(Fasting)); Potassium 4.0 mmol/L (3.5-5.1); Sodium 133.0 mmol/L (136-145)
--- NOTE | 2025-09-24 14:16 | Orthopedic Consultation ---
Date of Service September 24, 2025 Assessment & Plan (1) Pain and swelling of right wrist: At this point we will continue to monitor the patient. She does not appear to have significant swelling of the wrist at time of examination I do not recommend arthrocentesis at this time. MRI is pending and we will review results to determine if further intervention is required. History of Present Illness Reason for Consultation: Right wrist pain and swelling Requesting Physician: . Attending Physician: Cody Hayes MD This is a 80 y/o with HTN, hyperlipidemia, osteoarthritis, and other history as outlined below who presented to the ED with progressive weakness over the last four weeks. Pt reports that the weekend before , she woke up with swelling and discomfort in her right thumb and wrist. She initially attributed this to overuse as she had been cleaning the day before. However, she also had a cut on the tip of the right thumb from the edge of a metal can so she became concerned about infection. She saw her PCP who did a work-up including labs and an x-ray and told the patient that she may have PMR so she ordered a ten day prednisone taper. There was also some question of infection so she was given ten days of cephalexin. She reported some improvement in the swelling with the st eroids but after she finished the steroids four days ago, she noted an increase in the pain and swelling the next day. She has also noted issues with pain and stiffness in other joints previously, specifically knees and ankle. She has been given meloxicam prn in the past for the knee pain and has seen orthopedics. She reports she has not been using the right wrist/hand over the last few weeks due to her symptoms which has made completing her ADLs increasingly more difficult. She feels like she has become progressively weak due to decreasing ambulation but denies weakness in specific muscles. This morning, as she was getting ready, she slipped on a towel and slid to the floor. She was unable to get up off the floor so she called EMS and was brought to the ED. She denies chest pain, palpitations, dyspnea, N/V, fevers, chills, visual changes, hearing loss, significant neck pain or stiffness. Her baseline is ambulatory and able to complete ADLs without significant difficulty. Lives alone, no pets. Since admission, patient has been given Decadron without significant improvement. She is also receiving ketorolac which seems to improve her pain symptoms. Allergies Allergy/AdvReac Type Severity Reaction Status Date / Time latex Allergy Rash Verified 03/10/25 15:35 No Known Drug Allergies Allergy Verified 03/10/25 15:35 Penicillins Allergy Verified 03/10/25 15:35 Home Medications Medication Instructions Recorded Confirmed Type aspirin 81 mg tablet,delayed 81 mg PO QAM 03/01/19 09/23/25 History release atorvastatin 20 mg tablet 20 mg PO PM 03/01/19 09/23/25 History calcium 500 mg (as 1 tab PO BID 03/01/19 09/23/25 History carbonate)-vitamin D3 5 mcg (200 unit) tablet (Calcium 500 + D) cholecalciferol (vitamin D3) 25 1,000 unit PO DAILY 03/01/19 09/23/25 History mcg (1,000 unit) capsule (Vitamin D3) coenzyme Q10 100 mg capsule 0 cap PO DAILY ##0 03/01/19 09/23/25 History glucosamine-chondroitin 500 mg-400 1 tab PO DAILY 03/01/19 09/23/25 History mg tablet (Cosamin DS) multivitamin 1 tab PO DAILY 03/01/19 09/23/25 History omega 7-yif-bpw-fish oil 1,000 mg 1 cap PO DAILY 03/01/19 09/23/25 History (120 mg-180 mg) capsule (Fish Oil) vit C 250 mg-vit E 90 mg-zinc 40 1 tab PO DAILY 03/01/19 09/23/25 History mg-copper 1 ne-fsdgyh-zuincu capsule (PreserVision AREDS-2) benzonatate 100 mg capsule 100 mg PO BID PRN cough #30 caps 01/22/25 09/23/25 Rx lisinopril 5 mg tablet 2.5 mg PO PM 01/22/25 09/23/25 History meloxicam 15 mg tablet 15 mg PO DAILY PRN Pain 09/23/25 09/23/25 History Past Med/Surg History Problem List Osteoarthritis (Acute) Weakness (Acute) Pain and swelling of right wrist (Acute) Chondrocalcinosis Arthritis of knee, left Medical History Obesity (BMI 30.0-34.9) Plantar fasciitis of right foot Osteoarthritis History of anxiety Hypertension Hyperlipidemia Sleep apnea CPAP Surgical History History of cataract surgery History of tooth extraction History of tonsillectomy History of total abdominal hysterectomy and bilateral salpingo-oophorectomy History of colonoscopy W/ POLYPECTOMY Family History Brother Family history of diabetes mellitus Father Family history of diabetes mellitus Father Family hx of colon cancer Social History Smoking Status: Never smoker Second Hand Exposure: No; Do You Dip or Chew Tobacco: No; Hx Alcohol Use: No Hx Substance Use: No Preferred Language: Bengali Communication Ability: Effective 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 Physical Exam Patient was examined at bedside. Well-developed well-nourished older female in no acute distress. Examination of the right wrist shows no overlying skin changes, ecchymosis, or erythema. There is no noticeable swelling in the wrist. There is no obvious atrophy of the thenar and hyperthenar musculature. Patient does have a small cut on the end of her thumb that appears to be healing well. There is no signs of infection in the thumb. Patient has difficulty with range of motion of the fingers and wrist. First 3 digits are affected more. She has very limited wrist flexion but extension seems okay. Full active and passive range of motion of the elbow as well as pronation and supination. Supination does seem to cause a little bit of pain though. Fingers and hand are neurovascularly intact with good cap refill. Results & Data Results & Data Laboratory Results . Abnormal Lab Results 09/23/25 09/23/25 09/24/25 12:06 20:10 09:28 WBC 7.30 RBC 4.03 L Hgb 11.7 L Hct 34.3 L MCV 85.1 MCH 29.0 MCHC 34.1 RDW Std Deviation 47.9 H RDW Coeff of Kannan 15.3 H Plt Count 258 MPV 9.6 Immature Gran % (Auto) 0.3 Neut % (Auto) 89.5 Lymph % (Auto) 4.9 Barren % (Auto) 5.2 Eos % (Auto) 0.0 Baso % (Auto) 0.1 Reticulocyte % (Auto) 1.09 Neut # (Auto) 6.53 H Lymph # (Auto) 0.36 L Barren # (Auto) 0.38 Eos # (Auto) 0.00 Baso # (Auto) 0.01 Reticulocyte # 0.050 Immature Gran # (Auto) 0.02 Sodium 133 L Potassium 4.0 Chloride 101 Carbon Dioxide 26 Anion Gap 6 BUN 23 Creatinine 0.57 L Est Cr Clr Drug Dosing 80.1 eGFR 92.96 BUN/Creatinine Ratio 40.4 H Glucose 253 H Uric Acid 4.2 Calcium 9.5 Lactate Dehydrogenase 199 Total Creatine Kinase 88 Urine Color Yellow Urine Appearance Cloudy A Urine pH 7.0 Ur Specific [place] 1.020 Urine Protein Trace H Urine Glucose (UA) Negative Urine Ketones 1+ H Urine Blood Trace H Urine Nitrite Negative Urine Bilirubin Negative Urine Urobilinogen Positive H Ur Leukocyte Esterase Negative Urine WBC (Auto) 0-5 Urine RBC (Auto) 11-20 H U Hyaline Cast (Auto) 0-2 U Epithel Cells (Auto) 0-2 Urine Bacteria (Auto) None Seen Urine Comment Diagnostic Findings . PG Care Time/CCT Total # of Minutes Spent Total Time Spent with Patient: Total time spent is greater than 50% in coordination of care (as documented) at patient's floor/unit and/or counseling patient: [place] [address] IN/OBS CONSULT LVL 4,60M Patient Type New History Problem Focused Exam Problem Focused Diagnoses Pain and swelling of right wrist M25.531; M25.431
--- NOTE | 2025-09-24 15:22 | Magnetic Resonance Report ---
INDICATION: Pain and swelling COMPARISON: None Technique: Multiplanar multiecho MR examination of the right wrist was performed with and without contrast FINDINGS: Unfortunately the study is limited due to motion artifact. No form evidence of acute fracture or dislocation. No bone marrow edema. No bony erosive changes. Mild arthritic changes in the wrist. Small cyst formation in the scaphoid. Flexor and extensor tendons appear unremarkable as visualized. TFCC appears intact as visualized. There is subcutaneous edema and soft tissue swelling. No organized fluid collections. IMPRESSION: Limited study due to motion artifact. No acute osseous abnormality. Possible cellulitis changes. No abscess. Electronically signed by Maria Guadalupe Brito 09-24-2025 3:22 PM
[2025-09-24 16:16] LABS: Alanine Aminotransferase 30.0 U/L (7-52); Albumin Level 3.6 gm/dl (3.4-5.0); Alkaline Phosphatase 78.0 U/L (34-104); Bilirubin,Total 0.9 mg/dl (0.2-1.0); Total Protein 7.6 gm/dl (6.0-8.3)
[2025-09-24] MEDS: cefTRIAXone SODIUM 2,000 MG/50 ML BAG IV SCH (19:34)
[2025-09-25 05:00] LABS: Hematocrit (blood only) 34.4 % (37.0-47.0); Hemoglobin 11.9 g/dL (12.0-16.0); Mean Corpuscular Hemoglobin 29.2 pg (25.0-34.0); Mean Corpuscular Volume 84.3 fL (80.0-100.0); Platelet Count 278 K/uL (130-400); RDW Standard Deviation 46.7 fL (36.4-46.3); Red Blood Count 4.08 M/uL (4.20-5.40); White Blood Count 10.88 K/ul (4.8-10.8)
[2025-09-25 05:18] LABS: Alanine Aminotransferase 34.0 U/L (7-52); Albumin Globulin Ratio 1.0 (0.9-2); Albumin Level 3.5 gm/dl (3.4-5.0); Alkaline Phosphatase 63.0 U/L (34-104); Anion Gap 9.0 (3-11); Bilirubin,Total 0.5 mg/dl (0.2-1.0); Blood Urea Nitrogen 36.0 mg/dl (6-23); Calcium 9.5 mg/dl (8.6-10.3); Carbon Dioxide 24.0 mmol/L (21-32); Chloride 102.0 mmol/L (98-107); Creatinine Clr Calc Pharmacy 55.0 ml/min; Globulin 3.4 gm/dl (2.5-4.0); Glucose 135.0 mg/dl (70-99(Fasting)); Potassium 4.1 mmol/L (3.5-5.1); Sodium 135.0 mmol/L (136-145); Total Protein 6.9 gm/dl (6.0-8.3)
--- NOTE | 2025-09-25 09:25 | Orthopedic Progress Note ---
Date of Service September 25, 2025 Assessment & Plan (1) Pain and swelling of right wrist: * Continue Current Treatment * MRI reviewed, no indication for surgical intervention, no abscess or joint effusion * Unclear if symptoms are due to ?resolving cellulitis or rheumatological in nature * ESR and C-RP remain elevated but trending down. Rheumatology labs pending * Weight bearing status: Activity as tolerated * Daily treatment: Physical Therapy/ Occupational Therapy per protocol * Pain control * DVT prophylaxis per primary team * Disposition: TBD * Remainder care per primary team * Will follow peripherally Subjective . Active Problems: R wrist edema/weakness 80 y/o female with improving R wrist soft tissue swelling. Subjective weakness secondary to swelling. Soft tissue swelling and motion improving overnight. Rheumatology labs pending. Denies fever/chills, chest pain/SOB, nausea/vomiting. Otherwise no complaints. Review of Systems All systems reviewed & are unremarkable except as noted in HPI & below. Physical Exam . * General: Alert and oriented, no acute distress * Constitutional: well-developed, well-nourished. * Respiratory: Normal respiratory effort, no distress * Gastrointestinal: No tenderness to palpation, no rigidity or guarding. * Skin: No rash or lesion. * Neurologic: Grossly normal * Musculoskeletal: Right dorsal wrist/hand with trace soft tissue edema. No overlying erythema, open wounds, or other overlying skin changes to the wrist/hand area. Wrinkling present throughout. Small, healed laceration to the tip of the thumb. Otherwise no open wounds noted. No specific TTP with palpation of the base of thumb, dorsal wrist, dorsal hand, forearm, or throughout the fingers. AROM wrist flexion/extension, pronation/supination intact without pain. AROM finger flexion/extension limited secondary to swelling, but minimal pain. Sensation intact radial/median/ulnar nerve distributions. Brisk Apley refill. Results & Data Results & Data Laboratory Results . 09/25/25 09/24/25 09/24/25 04:35 15:33 09:28 WBC 10.88 H 7.30 RBC 4.08 L 4.03 L Hgb 11.9 L 11.7 L Hct 34.4 L 34.3 L MCV 84.3 85.1 MCH 29.2 29.0 MCHC 34.6 34.1 RDW Std Deviation 46.7 H 47.9 H RDW Coeff of Kannan 15.2 H 15.3 H Plt Count 278 258 MPV 9.8 9.6 Immature Gran % (Auto) 0.3 Neut % (Auto) 89.5 Lymph % (Auto) 4.9 [place] % (Auto) 5.2 Eos % (Auto) 0.0 Baso % (Auto) 0.1 Neut # (Auto) 6.53 H Lymph # (Auto) 0.36 L [place] # (Auto) 0.38 Eos # (Auto) 0.00 Baso # (Auto) 0.01 Immature Gran # (Auto) 0.02 ESR 86 H Sodium 135 L 133 L Potassium 4.1 4.0 Chloride 102 101 Carbon Dioxide 24 26 Anion Gap 9 6 BUN 36 H 23 Creatinine 0.83 0.57 L Est Cr Clr Drug Dosing 55.0 80.1 eGFR 72.11 92.96 BUN/Creatinine Ratio 43.4 H 40.4 H Glucose 135 H 253 H Calcium 9.5 9.5 Total Bilirubin 0.5 0.9 D Direct Bilirubin 0.2 AST 28 27 ALT 34 30 Alkaline Phosphatase 63 78 C-Reactive Protein 12.63 H Total Protein 6.9 7.6 Albumin 3.5 3.6 Globulin 3.4 Albumin/Globulin Ratio 1.0 Diagnostic Findings . Wrist MRI 09/23/25 16:13 INDICATION: Pain and swelling COMPARISON: None Technique: Multiplanar multiecho MR examination of the right wrist was performed with and without contrast FINDINGS: Unfortunately the study is limited due to motion artifact. No form evidence of acute fracture or dislocation. No bone marrow edema. No bony erosive changes. Mild arthritic changes in the wrist. Small cyst formation in the scaphoid. Flexor and extensor tendons appear unremarkable as visualized. TFCC appears intact as visualized. There is subcutaneous edema and soft tissue swelling. No organized fluid collections. IMPRESSION: Limited study due to motion artifact. No acute osseous abnormality. Possible cellulitis changes. No abscess. Electronically signed by Maria Guadalupe Brito 09-24-2025 3:22 PM PG Care Time/CCT Total # of Minutes Spent Total Time Spent with Patient: Total time spent is greater than 50% in coordination of care (as documented) at patient's floor/unit and/or counseling patient: Coding [place] [address] SUB INP/OBS CARE 10/29MIN Patient Type Established History Problem Focused Exam Problem Focused Medical Decision Making Low Complexity Diagnoses Pain and swelling of right wrist M25.531; M25.431
[2025-09-25] MEDS: DOCUSATE SODIUM 100 MG CAP PO SCH (13:05)
--- NOTE | 2025-09-25 15:50 | Hospitalist Progress Note ---
Date of Service September 25, 2025 Assessment & Plan (1) Pain and swelling of right wrist: (2) Weakness: (3) Osteoarthritis: (4) Hypertension: (5) Hyperlipidemia: Plan This is a 80 y/o with HTN, hyperlipidemia, osteoarthritis, and other history as outlined below who presented to the ED with right thumb and wrist pain and swelling as well as progressive generalized weakness over the last four weeks. Work-up in the ED was significant for elevated WBCs at 14.41, elevated sed rate at 103, elevated CRP at 20.38. Her total bilirubin was elevated at 2.1 with a direct bilirubin of 0.3. Due to the weakness and inability to get up off the floor this AM as well as noted lab abnormalities, she was referred for admission. Osteoarthritis Generalized weakness Possible cellulitis Initially thought by PCP to have polymyalgia rheumatica, so she was given a ten day tapering course of prednisone, with which she noted partial improvement and subsequent worsening after finishing the course Differential for migratory polyarthritis is broad and includes diagnoses such as OA, gout, pseudogout, lupus, and RA Also noted to have a new leukocytosis, which may be related to recent steroids or possible cellulitis Uric acid and CK WNL, trace protein in urine. CHINO, RF, anti-CCP, anti-dsDNA, C3, C4, ANCA still pending MRI revealed no acute osseous abnormality, possible cellulitis changes without abscess Ortho consulted and do not recommend surgical intervention Inflammatory markers downtrending Continue scheduled toradol and steroids Continue ceftriaxone for possible cellulitis PT/OT recommending home with , following Hyperbilirubinemia-> resolved Bilirubin elevated on admission, now resolved RUQ ultrasound with cholelithiasis, mild prominence of intrahepatic bile ducts, with normal-caliber common bile duct LDH WNL, retic count WNL, haptoglobin pending Hypertension Continue lisinopril DVT Prophylaxis: SQ lovenox Code Status: FULL CODE PCP: Trini Rosario Disposition: anticipate dc to home tomorrow with services Patient seen in collaboration with Dr. Hayes. Please see addendum. I spent a total of 60 minutes coordinating, documenting and providing care for this patient excluding time spent in the performance of separately billed services or time spent by another provider/QHP. Admission and Anticipated Discharge Date Admission Date: September 23, 2025 Supervising Physician Co-Signing Physician Notes 09/24/2025 The patient was seen and examined in medical floor in presence of the family members She has significant osteoarthritis involving multiple joints She is sleeping on her rock and suffered a fall at home Has been complaining of more swelling and pain involving the right wrist than any other joints On examination Complains weakness and pain involving the right wrist mainly Remains hemodynamically stable Noted to be tachycardic around 49 Chest was clear to auscultate bilaterally HeartS1-S2, regular Abdomenbenign Extremities no edema Musculoskeletal system did show acute arthritis involving right breast and arthritic changes involving the knees but no other acute acute arthritis involving any of the joint Her labs, imaging studies, medications reviewed Has acute arthritis involving the right wrist and MRI is showing possible cellulitis but no bony erosions Will start intravenous cefazolin She has significant osteoarthritis and will need to have PT OT evaluation I agree with assessment plan as outlined above by Shiloh Jensen PA-C and take the full responsibility of care in the hospital I spent a total of 20 minutes in examining the patient, explaining results of investigation and planning of care DR Nela Hayes 09/25/2025 The patient was seen and examined in medical floor She has been feeling much better and denies any significant symptoms involving the right wrist Remains hemodynamically stable and is afebrile White count is minimally elevated likely secondary to cellulitis involving the wrist area She denies any other significant symptoms She has that PT evaluation and recommended home but the family members especially the daughter wants her to be rehab for short-term Will discuss with the daughter tomorrow when she is back from [place] and then decide discharge disposition I spent a total of 15 minutes examining the patient, going over the treatment plan, discharge planning and disposition DR Nela Hayes Subjective Patient seen resting in bed Reports mobility and swelling in right hand is slightly improved Denies dizziness, chest pain, SOB, abdominal pain, N/V/D Review of Systems Review of Systems: All systems reviewed & are unremarkable except as noted in HPI & below Physical Exam Physical Exam: General/Psych: WD/WN, sitting up in bed, NAD, conversing easily Head: normocephalic, atraumatic Eyes: normal inspection, PERRL, conjunctivae pink Neck: normal visual inspection, trachea midline Respiratory: normal respiratory effort, lungs clear to auscultation, no wheeze/rales/rhonchi, no accessory muscle use Cardiovascular: regular rate and rhythm, no murmur/rub/gallop Extremities: no cyanosis or clubbing, normal peripheral pulses, no BLE edema Abdomen/GI: normal bowel sounds, soft, nontender Neurologic/MSK: A+Ox3, motor strength 5/5, decreased [employer] strength in R hand, moves all extremities Skin: no rashes, normal color, warm and dry Results & Data Results & Data Vital Signs (Past 12 Hours) Vital Signs Temp Pulse Resp BP Pulse Ox O2 Del Method 09/25/25 14:39 37.0 C 72 16 126/54 L 97 Room Air 09/25/25 07:00 36.8 C 65 16 146/84 H 96 Room Air Laboratory Results Short CBC 09/25/25 Range/Units 04:35 WBC 10.88 H (4.8-10.8) K/ul Hgb 11.9 L (12.0-16.0) g/dL Hct 34.4 L (37.0-47.0) % Plt Count 278 (130-400) K/uL BMP 09/25/25 04:35 Sodium 135 L Potassium 4.1 Chloride 102 Carbon Dioxide 24 BUN 36 H Creatinine 0.83 Glucose 135 H Calcium 9.5 Liver Function 09/24/25 09/25/25 Range/Units 15:33 04:35 Total Bilirubin 0.9 D 0.5 (0.2-1.0) mg/dl Direct Bilirubin 0.2 (0-0.2) mg/dl AST 27 28 (13-39) U/L ALT 30 34 (7-52) U/L Alkaline Phosphatase 78 63 (34-104) U/L Albumin 3.6 3.5 (3.4-5.0) gm/dl I have independently reviewed and interpreted patient's labs including CBC and CMP. Medications Administered Current Inpatient Medications Acetaminophen (Acetaminophen 325 Mg Tab) 650 mg PO Q4H PRN PRN Reason: pain/fever Stop: 10/23/25 17:42 Aspirin (Aspirin 81 Mg Ectab) 81 mg PO QAM MANJIT Stop: 10/24/25 08:59 Last Admin: 09/25/25 08:08 Dose: 81 mg Atorvastatin Calcium (Atorvastatin 20 Mg Tab) 20 mg PO PM MANJIT Stop: 10/23/25 20:59 Last Admin: 09/24/25 20:14 Dose: 20 mg Calcium/Vitamin D (Calcium 600mg + Vit D 400 Iu Tab) 1 tab PO BID MANJIT Stop: 10/23/25 20:59 Last Admin: 09/25/25 08:09 Dose: 1 tab Dexamethasone (Dexamethasone 4 Mg Tab) 4 mg PO DAILY MANJIT Stop: 10/24/25 08:59 Last Admin: 09/25/25 08:09 Dose: 4 mg Docusate Sodium (Docusate Sodium 100 Mg Cap) 100 mg PO BID MANJIT Stop: 10/25/25 12:59 Last Admin: 09/25/25 13:05 Dose: 100 mg Ceftriaxone Sodium (Rocephin) 2,000 mg in 50 mls @ 100 mls/hr IV Q24H MANJIT Stop: 10/01/25 18:14 Last Infusion: 09/24/25 20:06 Dose: Infused Ketorolac Tromethamine (Ketorolac Tromethamine 10 Mg Tablet) 10 mg PO TID MANJIT Stop: 09/28/25 20:59 Last Admin: 09/25/25 13:05 Dose: 10 mg Lisinopril (Lisinopril 2.5 Mg Tab) 2.5 mg PO PM MANJIT Stop: 10/23/25 20:59 Last Admin: 09/24/25 20:13 Dose: 2.5 mg Multivitamins (Multivitamin Tab) 1 tab PO DAILY MANJIT Stop: 10/24/25 08:59 Last Admin: 09/25/25 08:08 Dose: 1 tab Vitamin D (Cholecalciferol 25 Mcg (1000 Units) Tab) 25 mcg PO DAILY MANJIT Stop: 10/24/25 08:59 Last Admin: 09/25/25 08:08 Dose: 25 mcg
[2025-09-26 07:21] VITALS: PULSE 59; RESP 18; TEMP 97.9; O2SAT 96
[2025-09-26 07:55] LABS: Hematocrit (blood only) 34.4 % (37.0-47.0); Hemoglobin 11.7 g/dL (12.0-16.0); Mean Corpuscular Hemoglobin 28.7 pg (25.0-34.0); Mean Corpuscular Volume 84.3 fL (80.0-100.0); Platelet Count 279 K/uL (130-400); RDW Standard Deviation 46.6 fL (36.4-46.3); Red Blood Count 4.08 M/uL (4.20-5.40); White Blood Count 8.86 K/ul (4.8-10.8)
[2025-09-26 08:19] LABS: Anion Gap 8.0 (3-11); Blood Urea Nitrogen 32.0 mg/dl (6-23); Calcium 9.2 mg/dl (8.6-10.3); Carbon Dioxide 27.0 mmol/L (21-32); Chloride 101.0 mmol/L (98-107); Creatinine Clr Calc Pharmacy 64.3 ml/min; Glucose 88.0 mg/dl (70-99(Fasting)); Potassium 4.0 mmol/L (3.5-5.1); Sodium 136.0 mmol/L (136-145)
--- NOTE | 2025-09-26 11:17 | Discharge Summary ---
Discharge Summary Date of Service September 26, 2025 Principal Dx & Hospital Course #1 = Principal Diagnosis (1) Cellulitis of right hand: (2) Osteoarthritis: (3) Weakness: (4) Hypertension: (5) Hyperlipidemia: Plan This is a 80 y/o with HTN, hyperlipidemia, osteoarthritis, and other history as outlined below who presented to the ED on 09/23/2025 with right thumb and wrist pain and swelling as well as progressive generalized weakness over the last four weeks. Cellulitis of right hand Osteoarthritis Generalized weakness Patient presenting with inability to get off the ground after sliding to the fl oor from the couch and worsening ongoing right hand/wrist pain and swelling Evaluated by PCP for hand who ordered x-ray (normal), labs (no leukocytosis, negative lyme, ESR elevated), course of keflex and prednisone Patient reports hand/wrist pain and swelling worsened after completion of prednisone Labs revealed slight leukocytosis (14K-> resolved), elevated inflammatory markers (downtrended daily), hyperbilirubinemia CHINO, RF, anti-CCP, anti-dsDNA, C3, C4, ANCA still pending MRI revealed no acute osseous abnormality, possible cellulitis changes without abscess Ortho consulted and did not recommend surgical intervention Symptoms improved with IV antibiotics and oral steroids PT/OT recommended return home with HH-> accepted by [facility] who will start on 09/27 Discharged on keflex for total of 7 days of antibiotics and prednisone taper Hyperbilirubinemia-> resolved Bilirubin elevated on admission, now resolved RUQ ultrasound with cholelithiasis, mild prominence of intrahepatic bile ducts, with normal-caliber common bile duct Recommend follow up labs outpatient if indicated Hypertension Continue lisinopril Hyperlipidemia Continue atorvastatin Patient seen in collaboration with Dr. Hayes. Please see addendum. Notes For Next Care Provider 80 year old female with significant PMH who was admitted at [facility] from 09/23- 09/26/2025 for weakness and cellulitis of right hand. Right hand pain and swelling improved with antibiotics and steroids. Discharged on course of both. Evaluated by PT/OT who recommended home health services. Recommend close follow up. Medication Changes From Visit Cephalexin (Keflex) 500mg by mouth four times a day for 4 days - stop after last dose on 09/30/2025 - take with food to prevent stomach upset Prednisone 30mg (3 tabs) by mouth once a day for two days, 20mg (2 tabs) by mouth once a day for two days, 10mg (1 tab) by mouth once a day for two days then stop Admission HPI Per Admitting Provider This is a 80 y/o with HTN, hyperlipidemia, osteoarthritis, and other history as outlined below who presented to the ED with progressive weakness over the last four weeks. Pt reports that the weekend before , she woke up with swelling and discomfort in her right thumb and wrist. She initially attributed this to overuse as she had been cleaning the day before. However, she also had a cut on the tip of the right thumb from the edge of a metal can so she became concerned about infection. She saw her PCP who did a work-up including labs and an x-ray and told the patient that she may have PMR so she ordered a ten day prednisone taper. There was also some question of infection so she was given ten days of cephalexin. She reported some improvement in the swelling with the steroids but after she finished the steroids four days ago, she noted an increase in the pain and swelling the next day. She has also noted issues with pain and stiffness in other joints previously, specifically knees and ankle. She has been given meloxicam prn in the past for the knee pain and has seen orthopedics. She reports she has not been using the right wrist/hand over the last few weeks due to her symptoms which has made completing her ADLs increasingly more difficult. She feels like she has become progressively weak due to decreasing ambulation but denies weakness in specific muscles. This morning, as she was getting ready, she slipped on a towel and slid to the floor. She was unable to get up off the floor so she called EMS and was brought to the ED. She denies chest pain, palpitations, dyspnea, N/V, fevers, chills, visual changes, hearing loss, significant neck pain or stiffness. Her baseline is ambulatory and able to complete ADLs without significant difficulty. Lives alone, no pets. Admission Exam Per Admitting Provider General: awake, alert, NAD HEENT: no scleral icterus, moist oral mucosa Neck: supple, trachea midline Heart: RRR, no M/G/R Lungs: CTA bilaterally on the anterior Abdomen: soft, NT, +BS Skin: warm, dry, no jaundice Neurologic: Ox3, no confusion or dysarthria For rest of PE, see physician's addendum Discharge Exam General/Psych: WD/WN, sitting up in bed, NAD, conversing easily Head: normocephalic, atraumatic Eyes: normal inspection, PERRL, conjunctivae pink Neck: normal visual inspection, trachea midline Respiratory: normal respiratory effort, lungs clear to auscultation, no wheez e/rales/rhonchi, no accessory muscle use Cardiovascular: regular rate and rhythm, no murmur/rub/gallop Extremities: no cyanosis or clubbing, normal peripheral pulses, no BLE edema Abdomen/GI: normal bowel sounds, soft, nontender Neurologic/MSK: A+Ox3, motor strength 5/5, decreased ironer strength in R hand, moves all extremities Skin: no rashes, normal color, warm and dry Updated Medication List Medication Instructions Recorded Confirmed Type aspirin 81 mg tablet,delayed 81 mg PO QAM 03/01/19 09/23/25 History release atorvastatin 20 mg tablet 20 mg PO PM 03/01/19 09/23/25 History calcium 500 mg (as 1 tab PO BID 03/01/19 09/23/25 History carbonate)-vitamin D3 5 mcg (200 unit) tablet (Calcium 500 + D) cholecalciferol (vitamin D3) 25 1,000 unit PO DAILY 03/01/19 09/23/25 History mcg (1,000 unit) capsule (Vitamin D3) coenzyme Q10 100 mg capsule 0 cap PO DAILY ##0 03/01/19 09/23/25 History glucosamine-chondroitin 500 mg-400 1 tab PO DAILY 03/01/19 09/23/25 History mg tablet (Cosamin DS) multivitamin 1 tab PO DAILY 03/01/19 09/23/25 History omega 1-yhj-mki-fish oil 1,000 mg 1 cap PO DAILY 03/01/19 09/23/25 History (120 mg-180 mg) capsule (Fish Oil) vit C 250 mg-vit E 90 mg-zinc 40 1 tab PO DAILY 03/01/19 09/23/25 History mg-copper 1 da-kiohqs-smhfxg capsule (PreserVision AREDS-2) benzonatate 100 mg capsule 100 mg PO BID PRN cough #30 caps 01/22/25 09/23/25 Rx lisinopril 5 mg tablet 2.5 mg PO PM 01/22/25 09/23/25 History meloxicam 15 mg tablet 15 mg PO DAILY PRN Pain 09/23/25 09/23/25 History cephalexin 500 mg capsule 500 mg PO QID #16 caps 09/26/25 Rx prednisone 10 mg tablet 10 mg PO DAILY #12 tabs 09/26/25 Rx Hospital Stay Data Consultations 09/23/25 15:20 ED Decision to Admit Stat 09/23/25 17:43 Consult Orthopedic Surgery Routine Diagnostic Imagining Performed Chest X-Ray 09/23/25 12:09 Clinical History: Weakness Technique: A frontal view of the chest was obtained Findings: There are no confluent pulmonary infiltrates. The heart size is within normal limits. No pleural effusion or pneumothorax is seen. There is no definite pulmonary nodule. No fracture is noted. There is thoracic degenerative disc disease Impression: No active disease Electronically signed by Audi Freedman 09-23-2025 2:24 PM Knee X-Ray 09/23/25 16:13 Exam: 2 views of the knee. Exam reason: Intermittent pain. Comparison: 01/30/2021. Technique: AP and lateral views of the knee were obtained. Findings: There is no evidence of acute fracture or dislocation. No unusual soft tissue calcifications are noted and no radiopaque foreign bodies are seen. There is no significant joint effusion. There is joint space loss and marginal osteophyte formation noted throughout the knee. There is meniscal chondrocalcinosis. There are multiple well-corticated calcifications noted in the anterior compartment of the knee measuring up to approximately 11 mm in size. Impression: 1. Moderate degenerative osteoarthritis. 2. Meniscal chondrocalcinosis. 3. Calcified loose bodies noted in the anterior compartment of the knee joint. Electronically signed by Maurisio Mckeon 09-23-2025 7:54 PM Wrist MRI 09/23/25 16:13 INDICATION: Pain and swelling COMPARISON: None Technique: Multiplanar multiecho MR examination of the right wrist was performed with and without contrast FINDINGS: Unfortunately the study is limited due to motion artifact. No form evidence of acute fracture or dislocation. No bone marrow edema. No bony erosive changes. Mild arthritic changes in the wrist. Small cyst formation in the scaphoid. Flexor and extensor tendons appear unremarkable as visualized. TFCC appears intact as visualized. There is subcutaneous edema and soft tissue swelling. No organized fluid collections. IMPRESSION: Limited study due to motion artifact. No acute osseous abnormality. Possible cellulitis changes. No abscess. Electronically signed by MichaelMaria Guadalupe evans 09-24-2025 3:22 PM Liver Ultrasound 09/24/25 00:00 EXAM: US liver CLINICAL HISTORY: elevated bilirubin TECHNIQUE: Real-time grayscale and Doppler ultrasound imaging of the abdomen was performed. COMPARISON: No prior studies available for comparison. FINDINGS: Liver: Liver is normal in size and echotexture, measuring 14.0 cm. Few small simple hepatic cysts are noted, including a right lobe cyst measuring 1.4 × 1.2 × 1.2 cm and a left lobe cyst measuring 0.7 × 0.6 × 0.8 cm. Mild prominence of intrahepatic bile ducts is seen in the region of the sandie hepatis. Main portal vein demonstrates normal hepatopetal flow. Gallbladder and Biliary System: Gallbladder appears mildly contracted on the visualized images. A gallbladder calculus is identified measuring 2.0 × 1.0 × 1.7 cm. Gallbladder wall thickness measures 0.28 cm. The common bile duct is of normal caliber for age, measuring 7.21 mm. Pancreas: The pancreas demonstrates normal size and homogeneous echotexture. No focal lesions or masses are identified. Pancreatic duct is normal in caliber with no dilatation. Spleen: The spleen is normal in size, measuring 8.19 × 4.20 × 8.22 cm. A complex cystic lesion with multiple internal septations is noted, measuring 2.6 × 3.4 × 3.6 cm. Kidneys: Right kidney measures 11.6 cm; left kidney measures 11.02 cm. Both kidneys are normal in size, shape, and echotexture. No renal calculi or focal masses are identified. Renal parenchymal echogenicity and cortical thickness are normal. Mild prominence/fullness of the renal pelvis is noted bilaterally. Aorta: Visualized abdominal aorta appears normal. Inferior Vena Cava (IVC): Visualized IVC appears normal. Urinary Bladder: Partially filled urinary bladder at the time of examination with a volume of approximately 70 mL. The patient was unable to void during the scan. Other Findings: No free intraperitoneal fluid is identified. IMPRESSION: 1. Cholelithiasis with a single gallbladder calculus; no sonographic features of acute cholecystitis. 2. Mild prominence of intrahepatic bile ducts, with normal-caliber common bile duct. Need clinical and lab correlation. 3. Small simple hepatic cysts. 4. Complex septated splenic cyst. 5. Mild bilateral renal pelvic fullness, non-specific. Electronically signed by Clarence Graham 09-24-2025 04:11 AM Discharge Instructions Given to Patient (Per Discharging Provider) You presented to the hospital with weakness and worsening right hand/wrist pain and swelling. Your labs indicated inflammation but your inflammatory markers have been decreasing each day that you have been here. Your autoimmune labs are still pending. You underwent an MRI which revealed no abnormalities in the bones or tendons, and showed possible cellulitis. You were evaluated by Orthopedics who did not recommend any surgical intervention. Your cellulitis was treated with IV antibiotics and oral steroids. You will need to complete a course of oral antibiotics and steroid taper over the next few days. We recommend you follow up with your PCP and discuss with them about a referral to Rheumatology. Your bilirubin levels were elevated when you first came in. You underwent an ultrasound of your liver and gallbladder which showed gallstones but no blockages in any of your bile ducts. Your bilirubin levels and liver labs are all normal now. We recommend you discuss this with your PCP and monitor these labs in the future if needed. You were evaluated by PT and OT who felt you would benefit from home therapy. [facility] Home Health will be coming to your home on 09/27/2025 for services. MEDICATION CHANGES: Cephalexin (Keflex) 500mg by mouth four times a day for 4 days - stop after last dose on 09/30/2025 - take with food to prevent stomach upset Prednisone 30mg (3 tabs) by mouth once a day for two days, 20mg (2 tabs) by mouth once a day for two days, 10mg (1 tab) by mouth once a day for two days then stop SUMMARY OF TEST RESULTS: See above Knee x-ray showed moderate osteoarthritis PENDING TEST RESULTS: Autoimmune labs RECOMMENDATIONS FOR FOLLOW-UP: Please follow up with your PCP as scheduled on 10/03/2025 at 1:00pm OTHER INSTRUCTIONS: Seek medical attention if you have: * temperature above 101 * chest pain or trouble breathing * abdominal pain, nausea, vomiting * diarrhea, dark stools or bloody stools * any unanswered questions or concerns Call 911 if symptoms are severe. It has been a pleasure taking care of you. Please take care of yourself. If you have any questions regarding your recent hospitalization please contact [facility] and request Paulo Araujo @ [phone]. Home Health Attestation I certify that this patient is under my care and that I, or a physicians as sistant working with me, had a face to-face encounter that meets the home health [id number] encounter requirements with this patient. The encounter with the patient was in whole, or in part, for the following medical condition, which is the primary reason for home health care (list medical condition): Generalized weakness, osteoarthritis I certify that, based on my findings, the following services are medically necessary home health services: PT and OT My clinical findings support the need for the above services because: Further, I certify that my clinical findings support that this patient is homebound (i.e. absences from home require considerable and taxing effort and are for medical reasons or islam services or infrequently or of short duration when for other reasons) because: Certification for Home Health Services: Based on the above findings, I certify that this patient is confined to the home and needs intermittent halfway care, physical therapy and/or speech therapy or continues to need occupational therapy. The patient is under my care, and I have initiated the establishment of the plan of care. This patient will be followed by a physician who will periodically review the plan of care. Total Time Total Time Spent Total Time Spent (In Minutes): I spent a total of 35 minutes coordinating, documenting and providing care for this patient excluding time spent in the performance of separately billed services or time spent by another provider/QHP. Supervising Physician Co-Signing Physician Notes 09/24/2025 The patient was seen and examined in medical floor in presence of the family members She has significant osteoarthritis involving multiple joints She is sleeping on her rock and suffered a fall at home Has been complaining of more swelling and pain involving the right wrist than any other joints On examination Complains weakness and pain involving the right wrist mainly Remains hemodynamically stable Noted to be tachycardic around 49 Chest was clear to auscultate bilaterally HeartS1-S2, regular Abdomenbenign Extremities no edema Musculoskeletal system did show acute arthritis involving right breast and arthritic changes involving the knees but no other acute acute arthritis involving any of the joint Her labs, imaging studies, medications reviewed Has acute arthritis involving the right wrist and MRI is showing possible cellulitis but no bony erosions Will start intravenous cefazolin She has significant osteoarthritis and will need to have PT OT evaluation I agree with assessment plan as outlined above by Shiloh Jensen PA-C and take the full responsibility of care in the hospital I spent a total of 20 minutes in examining the patient, explaining results of investigation and planning of care DR Nela Hayes 09/25/2025 The patient was seen and examined in medical floor She has been feeling much better and denies any significant symptoms involving the right wrist Remains hemodynamically stable and is afebrile White count is minimally elevated likely secondary to cellulitis involving the wrist area She denies any other significant symptoms She has that PT evaluation and recommended home but the family members especially the daughter wants her to be rehab for short-term Will discuss with the daughter tomorrow when she is back from [place] and then decide discharge disposition I spent a total of 15 minutes examining the patient, going over the treatment plan, discharge planning and disposition DR Nela Hayes 09/26/2025 The patient was seen and examined in medical floor She has been much better today and does not seems to be confused as of yesterday Denies any significant symptoms and has been making a good fist with the right hand Her other joint seems to be stable at this time without any significant pain with movement She will be going home this afternoon Agree with assessment and plan as outlined above by SASHA Soni and take the full responsibility of care in the hospital I spent a total of 15 minutes examining the patient, going over the medications and investigation results and planning of care DR Nela Hayes
[2025-09-26] MEDS: cefTRIAXone SODIUM 2,000 MG/50 ML BAG IV STA (13:53)
[2025-09-26 14:07] VITALS: BP 150/72
--- NOTE | 2025-09-27 12:53 | Communication Note ---
Date of Service: September 25, 2025 Tertiary survey: Subjective: Patient reports mobility and swelling in right hand is slightly improved; denies dizziness, chest pain, SOB, abdominal pain, N/V/D CAGE-AID Screen: 0 Objective: Lab Review: I have independently reviewed and interpreted patient's labs including CBC and CMP. Imaging Review: N/A Physical Exam: General: - Alert: Yes - Oriented: Yes - GCS 15: Yes HEENT: - No pain/tenderness. - No lacerations/abrasions - No numbness/tingling - PERLAA. Normal Visual Acuity. No visual field cuts. No nystagmus. No contact lenses. Normal hearing. No relative afferent pupillary defect. No facial asymmetry. Normal palatal elevation, uvula midline. Midline tongue protrusion. Shoulder shrug with 5/5 strength bilaterally. - Mucous membranes moist. Neck: - Midline Tenderness: No - Cleared C-Spine: Yes Thorax: - Pain/Tenderness: None - Lacerations/Abrasions: None - Swelling/Ecchymosis: None - Air/Bony Crepitus: None Cardiopulmonary: - Regular Rate and Rhythm. No murmurs, rubs or gallops. - Breath sounds CTAB. No wheezes, rales, or rhonchi. - Symmetrical Chest Rise Abdomen - Pain/Tenderness: None - Lacerations/Abrasions: None - No abdominal distension - Abdominal rigidity/guarding: None - Bowel Sounds: Present, normal - Pelvis stable Back/Spine - Lacerations/Abrasions: None - Swelling/Ecchymosis: None - Pain/Tenderness: None - Step-offs: None Extremities: - RUE: No deformity. No lacerations/abrasions. +Swelling in right hand. No pain/tenderness. Full active and passive range of motion. +Decreased production posting clerk strength. Elbow flexion/extension, shoulder flexion/extension/abduction/adduction/external rotation/internal rotation intact with 5/5 strength. Sensation intact to soft touch without deficit. Radial pulse intact, cap refill in the thumb <2 seconds. Extremity warm and dry. - LUE: No deformity. No lacerations/abrasions. No swelling/ecchymosis. No pain/tenderness. Full active and passive range of motion. [place] [facility] [employer] strength, elbow flexion/extension, shoulder flexion/extension/abduction/adduction/external rotation/internal rotation intact with 5/5 strength. Sensation intact to soft touch without deficit. Radial pulse intact, cap refill in the thumb <2 seconds. Extremity warm and dry. - RLE: No deformity. No lacerations/abrasions. No swelling/ecchymosis. No pain/tenderness. Full active and passive range of motion. Hip flexion/extension, knee flexion/extension, ankle dorsiflexion/plantarflexion with 5/5 strength. Sensation intact to soft touch without deficit. PT pulse intact to palpation, cap refill in the hallux <2 seconds. Extremity warm and dry. - LLE: No deformity. No lacerations/abrasions. No swelling/ecchymosis. No pain/tenderness. Full active and passive range of motion. Hip flexion/extension, knee flexion/extension, ankle dorsiflexion/plantarflexion with 5/5 strength. Sensation intact to soft touch without deficit. PT pulse intact to palpation, cap refill in the hallux <2 seconds. Extremity warm and dry. Mental status Adequate for Full Exam: Yes C-Spine Cleared (Radiologically AND Clinically): Yes New Diagnoses Identified: None New Consults Required: None Attending addendum Patient was examined and the above documentation was reviewed and approved . Dr Nela Hayes
== END 2025-09-26 15:40 | disposition home health service (06) | DRG 603 ==
LOC: ED 11:57 → 3W 15:59 → SUATTDRO 15:59 → 3W 17:40